=== PATIENT | male | born 1965 | race Caucasian/White ===

== ENCOUNTER 2019-03-02 07:51 | Outpatient (RCR) | payer BC, SELFPAY ==
[2019-03-02] VITALS (8 sets, daily range): BP systolic 111–122; BP diastolic 65–79; PULSE 62–78; RESP 16; TEMP 36.6–37.3; O2SAT 97–100
[2019-03-02] MEDS: ACETAMINOPHEN 325 MG TABLET 650 MG PO (08:25)
[2019-03-02] MEDS: FUROSEMIDE INJ 40 MG/4 ML VIAL 20 MG IV PUSH (11:20)
== END 2019-05-31 23:59 | disposition home or self-care (01) ==
LOC: ANHCPCTRAN 07:51
PROVIDERS: PCP Internal Medicine; Visit Provider Internal Medicine Hematology & Oncology
DX: C15.5 Malignant neoplasm of lower third of esophagus (principal)
CPT/HCPCS: 36415; 36430; 86850; 86900; 86901; 86923; 96374; A9270; J1940; J7050; P9016

== ENCOUNTER 2019-05-18 06:53 | Outpatient (CLI) | payer BC, SELFPAY ==
--- NOTE | ~2019-05-18 | PE_ITS ---
EXAMINATION: PET skull to mid thigh DATE: 05/18/2019 09:51 INDICATION: Cancer of distal third of esophagus. TECHNIQUE: Blood glucose level was 127 mg/dL. 10.638 mCi of 18-fluorodeoxyglucose (18-FDG) was admini stered i.v. Low dose computed tomography (CT) images were acquired from the base of the brain to the proximal thighs for attenuation correction and anatomic localization. Automated exposure control was employed. Dose-length product (DLP) was 482 mGy-cm. Positron emission tomography (PET) images were ac quired in the same distribution. COMPARISON: PET/CT 02/09/2019 FINDINGS: Head/neck: There are no pathologically enlarged lymph nodes. Chest: There is mild emphysema. There is mild atelectasis bilaterally. There are tree-in-bud opacitie s and centrilobular nodules in right upper lobe, consistent with mild pneumonia. No pleural effusion. There are changes of esophagectomy and gastric pull-through procedure. At the diaphragmatic hiatus a butting the stomach, there is a 2.6 x 2.3 cm mass with maximum SUV of 3.5. On 02/09/2019, the mass me asured 4.2 x 3.3 cm with maximum SUV of 12.4. There are no pathologically enlarged lymph nodes. Ther e is a left internal jugular port with tip in right atrium. Abdomen/pelvis/proximal thighs: The liver, gallbladder, spleen, pancreas, adrenal glands, and kidneys are normal. There are no dilated loops of bowel. There are no pathologically enlarged lymph nodes. T here is no free intraperitoneal fluid. IMPRESSION: 1. Mass at the diaphragmatic hiatus abutting the stomach with interval decrease in size and activity, consistent with recurrent esophageal cancer. 2. Mild pneumonia in right lung upper lobe. Reviewed, dictated and finalized at location A. HEALTH SCHEDULER
[2019-05-18 07:36] LABS: Glucose Point of Care 127 (65-105)
== END 2019-05-18 06:54 | disposition home or self-care (01) ==
LOC: ANHIMG 06:56
PROVIDERS: Visit Provider Internal Medicine Hematology & Oncology
DX: C15.5 Malignant neoplasm of lower third of esophagus (principal); J18.9 Pneumonia, unspecified organism
CPT/HCPCS: 78815; A9552

== ENCOUNTER 2019-05-29 08:01 | Outpatient (CLI) | payer BC, SELFPAY ==
--- NOTE | ~2019-05-29 | MR_ITS ---
EXAMINATION: MR abdomen wo/w con DATE: 05/29/2019 10:03 INDICATION: Malignant neoplasm of the lower third of the esophagus TECHNIQUE: Magnetic resonance imaging (MRI) of the abdomen was performed without and with 13 mL Multi viki intravenous contrast. Sequences included coronal T2-weighted SS-FSE, coronal and axial FS 2D-F IESTA, axial STIR FSE, axial T2-weighted SS-FSE, axial T2-weighted FS SS-FSE, axial diffusion-weighte d SE, axial dual-echo T1-weighted FSPGR, and axial and coronal T1-weighted LAVA. Postcontrast axial T 1-weighted LAVA images were obtained in a time course. Postcontrast coronal T1-weighted LAVA images w ere obtained. COMPARISON: PET/CT dated 05/18/[address] of the abdomen and pelvis dated 11/18/2018 FINDINGS: Postoperative change of prior esophagectomy and gastric pull-through procedure. There is enhancing so ft tissue resulting in focal wall thickening of the pull-through at the level of the thoracic hiatus. This measures approximately 3.9 x 4.2 cm in maximal dimensions on the coronal images which appears u nchanged compared with chest CT dated 02/06/2019. The mass surrounds a couple foci of susceptibility artifact likely related to prior surgical clips. 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 Mild atelectasis in the right lower lobe. Heart size is normal. No pericardial or pleural effusion. T he liver, gallbladder, spleen, bilateral adrenal glands and kidneys are normal. Mild fatty atrophy of the pancreas. Aside from the mass at the breast colitis which have resulted from a metastatic paraes ophageal lymph node, no other pathologically enlarged abdominal lymph nodes. Visualized portions of t he bowels and bladder are normal. Bones are unremarkable with normal marrow signal. IMPRESSION: 1. Status post esophagectomy and gastric bypass procedure for reported poor esophageal cancer. 2. Poorly delineated enhancing mass with irregular margins located at the thoracic hiatus likely resu lting from metastatic paraesophageal lymph nodes and invading the wall of the distal aspect of a josee amy pull-through. This does not appear appreciably changed in size when compared and coronal imaging with CT dated 02/06/2019. No other evident metastatic disease. Reviewed, dictated and finalized at location A. M PROFESSIONAL IMPRESSION: 1. Status post esophagectomy and gastric bypass procedure for reported poor eso phageal cancer. 2. Poorly delineated enhancing mass with irregular margins located at the thora cic hiatus likely resulting from metastatic paraesophageal lymph nodes and inva ding the wall of the distal aspect of a gastric pull-through. This does not ketty ear appreciably changed in size when compared and coronal imaging with CT dated 02/06/2019. No other evident metastatic disease.
[2019-05-29 08:38] LABS: Blood Urea Nitrogen 11 mg/dL (8-26); Estimated Glomerular Filt Rate > 60
== END 2019-05-29 08:02 | disposition home or self-care (01) ==
PROVIDERS: PCP Internal Medicine; Visit Provider Radiology Radiation Oncology
DX: C15.5 Malignant neoplasm of lower third of esophagus (principal); C77.1 Secondary and unspecified malignant neoplasm of intrathoracic lymph nodes; Z90.49 Acquired absence of other specified parts of digestive tract; Z98.84 Bariatric surgery status
CPT/HCPCS: 74183; A9577

== ENCOUNTER 2019-08-01 07:11 | Outpatient (CLI) | payer BC, SELFPAY ==
--- NOTE | ~2019-08-01 | PE_ITS ---
EXAMINATION: PET skull to mid thigh DATE: 08/01/2019 09:32 INDICATION: Cancer of the distal third of the esophagus TECHNIQUE: Blood glucose level was 111 mg/dL. 9.877 mCi of 18-fluorodeoxyglucose (18-FDG) was adminis tered i.v. Low dose computed tomography (CT) images were acquired from the base of the brain to the p roximal thighs for attenuation correction and anatomic localization. Positron emission tomography (PE T) images were acquired in the same distribution beginning 73 minutes after injection. Images includi ng fused PET/CT images were reconstructed in axial, coronal, and sagittal planes. Automated exposure control technique was employed. The dose-length product was 532.03mGy-cm. COMPARISON: PET/CT dated 05/18/2019 and 02/09/2019 and abdomen MRI dated 05/29/2019 FINDINGS: Head/neck: There is symmetric increased activity in the oral cavity, palatine tonsils and ocular muscles without CT correlate, likely physiologic. No pathologically enlarged cervical lymphadenopathy or suspicious foci of increased FDG uptake in the visualized head or neck. Chest: Postoperative change of prior esophagectomy and gastric pull-through procedure. There is mild atelect asis in the right upper and bilateral lower lobes along the margins of the pull-through. Mild emphyse ma. No suspicious pulmonary nodules or pleural effusion. Heart size is normal. No pericardial effusio n. Atherosclerotic coronary artery calcifications. Left internal jugular central venous port catheter with distal tip at the high right atrium. No pathologically enlarged or FDG avid thoracic lymphadeno aydee. Abdomen/pelvis/proximal thighs: At the diaphragmatic hiatus abutting the distal stomach there has been no significant interval change in a poorly defined FDG avid mass with maximal SUV of 3.6 which measures approximately 2.6 x 2.1 cm at the level of a surgical clip. Physiologic renal accumulation and excretion of FDG activity in the kidneys, bladder and along portions of ureters. Normal degree and heterogenous pattern of increased u ptake throughout the liver without radiologic correlate or dominant FDG avid lesion. The gallbladder, pancreas, spleen and bilateral adrenal glands are normal. Mild uptake scattered throughout the bowel s without radiologic correlate, also likely physiologic. No other abnormal foci of increased FDG upta ke or pathologically enlarged lymphadenopathy in the abdomen, pelvis or proximal thighs. Musculoskeletal: No suspicious lytic, blastic or FDG avid bone lesions. IMPRESSION: 1. Postoperative change of prior esophagectomy and gastric pull-through procedure for reported distal esophageal cancer. 2. No interval change in a small mildly FDG avid mass abutting the distal stomach at the thoracic hia tus which is decreased in size and FDG activity since an earlier PET study consistent with treated lo dio recurrent disease. No new metastatic disease. Reviewed, dictated and finalized at location A. IMPRESSION: 1. Postoperative change of prior esophagectomy and gastric pull-through procedu re for reported distal esophageal cancer. 2. No interval change in a small mildly FDG avid mass abutting the distal stoma ch at the thoracic hiatus which is decreased in size and FDG activity since an earlier PET study consistent with treated locally recurrent disease. No new met astatic disease.
[2019-08-01 07:53] LABS: Glucose Point of Care 111 (65-105)
== END 2019-08-01 07:12 | disposition home or self-care (01) ==
LOC: ANHIMG 07:13
PROVIDERS: PCP Internal Medicine; Visit Provider Internal Medicine Hematology & Oncology
DX: C15.5 Malignant neoplasm of lower third of esophagus (principal)
CPT/HCPCS: 78815; A9552

== ENCOUNTER 2019-08-23 10:28 | Outpatient (CLI) | payer BC, SELFPAY ==
--- NOTE | ~2019-08-23 | XR_ITS ---
XR abdomen/kub 1V 08/23/2019 10:54 INDICATION: Kidney stone TECHNIQUE: KUB COMPARISON: Comparison to multiple prior studies sequentially, with oldest reviewed study dated 01/09. FINDINGS: Bowel gas pattern is normal. There is no evidence of free air, mass, organomegaly, ascites or obstruction. No abnormal calculi are seen. No suspected urolithiasis. The bones appear intact. IMPRESSION: 1: No acute abdominal abnormality identified. Reviewed, dictated and finalized at location A.
== END 2019-08-23 10:29 | disposition home or self-care (01) ==
LOC: ANHIMG 10:31
PROVIDERS: PCP Internal Medicine; Visit Provider Urology
DX: N20.0 Calculus of kidney (principal)
CPT/HCPCS: 74018

== ENCOUNTER 2019-10-02 06:36 | Outpatient (CLI) | payer BC, SELFPAY ==
--- NOTE | ~2019-10-02 | CT_ITS ---
EXAMINATION: CT chest w con DATE: 10/02/2019 07:21 INDICATION: Cancer of the distal third of the esophagus TECHNIQUE: Transaxial computed tomographic images of the chest were obtained after the administration of 75 cc of Omnipaque 350 intravenous contrast. The dose-length product (DLP) was 243.17 mGy-cm. Ite rative reconstruction was used. COMPARISON: 08/01/2019, 02/06/2019 FINDINGS: There are changes of esophagectomy and gastric pull-through. The lungs are free of acute op acities. No suspicious pulmonary nodules are identified. There is no pleural effusion or pneumothorax . A left internal jugular Port-A-Cath ends with its tip in the proximal right atrium. No pathological ly enlarged thoracic lymph nodes are identified. The heart size is normal. There is continued interva l decrease in size of the previously described mass at the diaphragmatic hiatus abutting the stomach. The mass measures approximately 2.9 x 2.5 cm, previously 3.6 x 2.6 cm. Calcified coronary artery ath erosclerosis is noted. IMPRESSION: 1. Continued interval decrease in size of a mass at the diaphragmatic hiatus, consistent with respons e to therapy of locally recurrent esophageal cancer. Reviewed, dictated and finalized at location A. IMPRESSION: 1. Continued interval decrease in size of a mass at the diaphragmatic hiatus, c onsistent with response to therapy of locally recurrent esophageal cancer.
[2019-10-02 07:12] LABS: Estimated Glomerular Filt Rate > 60
== END 2019-10-02 06:37 | disposition home or self-care (01) ==
LOC: ANHIMG 06:39
PROVIDERS: PCP Internal Medicine; Visit Provider Internal Medicine Hematology & Oncology
DX: C15.5 Malignant neoplasm of lower third of esophagus (principal)
CPT/HCPCS: 36415; 71260; Q9967

== ENCOUNTER 2019-10-28 01:46 | Outpatient (CLI) | payer BC, SELFPAY ==
[2019-10-28 18:09] LABS: SARS-CoV-2 RNA PCR Negative
== END 2019-10-28 01:47 | disposition home or self-care (01) ==
LOC: ANHIMG 01:47
PROVIDERS: Surgery; PCP Internal Medicine; Visit Provider Internal Medicine Hematology & Oncology
DX: Z01.818 Encounter for other preprocedural examination (principal); Z11.59 Encounter for screening for other viral diseases; C15.5 Malignant neoplasm of lower third of esophagus
CPT/HCPCS: 87635; C9803; U0003

== ENCOUNTER 2019-10-31 02:18 | Day surgery (SDC) | payer BC, SELFPAY ==
[2019-10-24 14:55] VITALS: BMI 28.5
[2019-10-31 06:56] VITALS: BP 116/76; PULSE 84; RESP 16; TEMP 36.4; O2SAT 99; BMI 25.6
[2019-10-31 07:12] LABS: Glucose Point of Care 115 (65-105)
[2019-10-31] MEDS: LACTATED RINGERS 1,000 ML 150 ML IV CONT (07:13)
--- NOTE | 2019-10-31 07:55 | WPDANESEPPF ---
Anes - Initial Pre Proc Eval Procedure: Operation Date: 10/31/19 08:15 Proposed Procedures p Screening Colonoscopy - Anderson Sousa DO Date/Time: 10/31/19 07:55 Surgeon: Anderson Sousa DO Pre Op Diagnosis: CA of Third Distal esophagus Patient Data Age: 54 Gender: M Height: 5 ft 8 in Weight: 76.5 kg Last Vital Signs Temp 36.4 C L 10/31/19 06:56 Pulse 84 10/31/19 06:56 Resp 16 10/31/19 06:56 BP 116/76 10/31/19 06:56 Pulse Ox 99 10/31/19 06:56 Allergies Allergy/AdvReac Type Severity Reaction Status Date / Time tamsulosin Allergy Intermediate HIVES Verified 10/31/19 06:55 Home Medications Medication Instructions Recorded Confirmed Type Lantus U-100 Insulin 8 unit SUBCUT DAILY 02/15/19 10/24/19 History escitalopram oxalate 40 mg PO DAILY 02/15/19 10/24/19 History lorazepam 0.5 mg PO BID PRN 02/15/19 10/24/19 History omeprazole 20 mg PO BID 02/15/19 10/24/19 History pravastatin 10 mg PO DAILY 02/15/19 10/24/19 History duloxetine 20 mg PO DAILY 10/24/19 10/24/19 History Laboratory Tests 10/31/19 07:07 POC Capillary Glucose 115 mg/dl H mg/dl (65-105) Patient hx anesthesia problems: none Family hx anesthesia problems: none PMFSH Past Medical History Medical History Anxiety Chronic GERD HTN (hypertension) Hyperlipidemia Insulin dependent diabetes mellitus Local recurrence of malignant neoplasm of esophagus SUDHIR (obstructive sleep apnea) Surgical History Surgical History History of esophagectomy Family History Family History Grandparent Diabetes mellitus Family history of cardiovascular disease Sibling Hypertension Mother Family history of elevated blood lipids Social History Social History Smoking status: Never smoker Anes - Eval Final PreProcedure Day of Procedure 10/31/19 07:55 Patient weight: overweight Heart: regular rate and rhythm Lungs: clear to auscultation Airway: Mallampati scale class II Neurological: alert and oriented Last oral intake: >/= 8 hours ASA classification: III Emergent: no Anesthetic plan: proceed Anesthesia type and monitoring: general GIVS and standard monitoring Informed Consent: The patient's anesthetic plan and its attendant risks and benefits were discussed with the patient/family/POA. Questions were solicited and answers provided to the satisfaction of the patient/family/POA.
--- NOTE | 2019-10-31 08:13 | PM.IMHP ---
H&P: HPI History of Present Illness Chief complaint: CA of Third Distal esophagus Narrative: Lazarus Bernard is a 54 year old male who presents for colonoscopy. He has never had one before. Had fecal occult blood test positive but doesn't notice blood in stool. Has hx of esophageal cancer and chemo/radiation. No fam hx colon cancer. Review of Systems Review of Systems: All systems reviewed & are unremarkable except as noted in HPI and below Constitutional: Constitutional: Denies chills, Denies fever(s), Denies headache(s) and Denies weight loss Eyes: Eyes: Denies change in vision ENT: Denies dizziness, Denies headache(s), Denies neck mass and Denies throat swelling Cardiovascular: Cardiovascular: Denies chest pain, Denies lightheadedness and Denies dyspnea Respiratory: Respiratory: Denies cough, Denies dyspnea and Denies wheezing Gastrointestinal: Gastrointestinal: Denies abdominal pain, Denies change in bowel habits, Denies nausea and Denies vomiting Genitourinary: Genitourinary: Denies hematuria and Denies dysuria Musculoskeletal: Musculoskeletal: Reports as per HPI Integumentary/Breasts: Skin/Breast: Reports as per HPI Neurologic: Denies dizziness and Denies headache(s) Allergic/Immunologic: Allergic/Immunologic: Denies throat swelling and Denies wheezing PMF Past Medical History Medical History Anxiety Chronic GERD HTN (hypertension) Hyperlipidemia Insulin dependent diabetes mellitus Local recurrence of malignant neoplasm of esophagus SUDHIR (obstructive sleep apnea) Surgical History Surgical History History of esophagectomy Family History Family History Grandparent Diabetes mellitus Family history of cardiovascular disease Sibling Hypertension Mother Family history of elevated blood lipids Social History Social History Smoking status: Never smoker Meds Home Medications and Allergies Home Medications Medication Instructions Recorded Confirmed Type Lantus U-100 Insulin 8 unit SUBCUT DAILY 02/15/19 10/24/19 History escitalopram oxalate 40 mg PO DAILY 02/15/19 10/24/19 History lorazepam 0.5 mg PO BID PRN 02/15/19 10/24/19 History omeprazole 20 mg PO BID 02/15/19 10/24/19 History pravastatin 10 mg PO DAILY 02/15/19 10/24/19 History duloxetine 20 mg PO DAILY 10/24/19 10/24/19 History Allergies Allergy/AdvReac Type Severity Reaction Status Date / Time tamsulosin Allergy Intermediate HIVES Verified 10/31/19 06:55 Vital Signs Vital Signs - 24 hr 10/31/19 06:56 Temperature 36.4 C L Pulse Rate 84 Respiratory Rate 16 Blood Pressure 116/76 Pulse Oximetry 99 Exam Const: General: no acute distress and alert Orientation/consciousness: patient oriented x3 HENMT: Head: normocephalic and atraumatic Ears: hearing grossly normal bilaterally General nose exam: Normal nares present Mouth: Yes Normal oral and palatal mucosa present Eyes: Periorbital: periorbital findings normal Sclera: sclerae normal EOM: EOMs intact bilaterally Neck: Neck: normal visual inspection, no lymphadenopathy and trachea midline Chest: Chest palpation & inspection: normal inspection of the chest Resp: Effort & Inspection: normal respiratory effort Auscultation: clear to auscultation bilaterally Cardio: Jugular venous distension: no JVD Rate: regular rate Rhythm: regular rhythm Heart sounds: S1 normal heart sound present and S2 normal heart sound present Peripheral pulses: Peripheral pulses 2+ throughout GI: Inspection: normal to inspection GI Palp: Yes Soft to palpation, No Tenderness to palpation present (GI), No Guarding due to palpation present (GI) and No Rebound tenderness present Percussion: Yes normal to percussion Auscultation: normal bowel sounds : Genera
[2019-10-31 08:43] VITALS: BP 119/78; PULSE 73; RESP 16; O2SAT 96
[2019-10-31 08:53] VITALS: BP 123/78; PULSE 82; RESP 16; O2SAT 99
[2019-10-31 09:03] VITALS: BP 121/81; PULSE 79; RESP 16; O2SAT 99
[2019-10-31 10:22] LABS: Glucose Point of Care 103 (65-105)
== END 2019-10-31 09:18 | disposition home or self-care (01) ==
PROVIDERS: PCP Internal Medicine; Visit Provider Surgery
PROC: 0DJD8ZZ Inspection of Lower Intestinal Tract, Via Natural or Artificial Opening Endoscopic (ICD-10-PCS; CPT 45378; principal; 2019-10-31 08:15)
DX: Z12.11 Encounter for screening for malignant neoplasm of colon (principal); R19.5 Other fecal abnormalities; K62.1 Rectal polyp; I10 Essential (primary) hypertension; E78.5 Hyperlipidemia, unspecified; E11.9 Type 2 diabetes mellitus without complications; G47.33 Obstructive sleep apnea (adult) (pediatric); K21.9 Gastro-esophageal reflux disease without esophagitis; F41.9 Anxiety disorder, unspecified; Z79.4 Long term (current) use of insulin; Z85.01 Personal history of malignant neoplasm of esophagus; Z92.21 Personal history of antineoplastic chemotherapy; Z92.3 Personal history of irradiation
CPT/HCPCS: 45380; 88305; J2704; J7120

== ENCOUNTER 2019-12-04 15:58 | Outpatient (CLI) | payer BC, SELFPAY ==
--- NOTE | ~2019-12-04 | XR_ITS ---
EXAMINATION: XR shoulder LT min 2V DATE: 12/04/2019 16:22 INDICATION: Generalized left shoulder pain TECHNIQUE: AP internally and externally rotated, AP oblique externally rotated and transscapular Y vi ews of the left shoulder were obtained. COMPARISON: None FINDINGS: Normal alignment. No fracture. Glenohumeral joint is normal. Minimal acromioclavicular osteoarthriti s. Left internal jugular central venous port catheter which extends into the superior vena cava with distal tip not visualized. Soft tissues are unremarkable. IMPRESSION: Minimal acromioclavicular osteoarthritis. Reviewed, dictated and finalized at location A.
[2019-12-04 16:10] LABS: Basophils Absolute Auto 0.06 K/mm3 (0.00-0.10); Basophils Percent Auto 1.3 % (0.0-1.0); Eosinophils Absolute Auto 0.13 K/mm3 (0.02-0.50); Eosinophils Percent Auto 2.7 % (1.0-6.0); Hemoglobin 11.8 g/dL (14.0-18.0); Immature Granulocyte Absolute 0.02 K/mm3 (0.00-0.00); Immature Granulocyte Percent A 0.4 % (0.0-0.0); Lymphocytes Absolute Auto 0.59 K/mm3 (1.10-4.50); Lymphocytes Percent Auto 12.4 % (18.0-42.0); Mean Corpuscular HGB Conc 31.9 g/dL (32.0-36.0); Mean Corpuscular Hemoglobin 28.9 pg (27.0-31.0); Mean Corpuscular Volume 90.5 fL (78.0-102.0); Mean Platelet Volume 8.1 fl (8.7-11.0); Monocytes Absolute Auto 0.68 K/mm3 (0.10-0.90); Monocytes Percent Auto 14.3 % (2.0-11.0); Neutrophils Absolute Auto 3.3 K/mm3 (1.7-7.2); Neutrophils Percent Auto 68.9 % (50.0-70.0); Platelet Count Result 191 K/mm3 (150-420); Red Blood Count 4.09 M/mm3 (4.70-6.10); Red Cell Distribution Width 18.1 % (11.6-14.4); White Blood Count 4.8 K/mm3 (4.8-10.8)
[2019-12-04 16:13] LABS: Add Urine Microscopic? YES; Appearance Urine Clear (Clear); Bilirubin Urine Negative (Negative); Blood Urine Negative (Negative); Color Urine Yellow (Yellow); Glucose Urine UA 2+ (Negative); Ketones Urine Trace (Negative); Leukocyte Esterase Ur Negative (Negative); Nitrate Urine Negative (Negative); Protein Urine Negative (Negative); Specific Grav Ur >= 1.030 (1.010-1.020); Urobilinogen Urine 0.2 mg/dL (0.2-1.0); pH Urine 5.5 (5.0-8.0)
[2019-12-04 16:19] LABS: Hemoglobin A1C 7.3 % (<5.7)
[2019-12-04 16:31] LABS: Bacteria Urine Trace /hpf; Calcium Oxalate Crystals Urine Present /hpf; RBC Urine 0-2 /hpf (0-2); Squamous Epithelial Cell Urine Rare /hpf (Few); WBC Urine 0-3 /hpf (0-3)
[2019-12-04 17:16] LABS: Alanine Aminotransferase 28 U/L (16-63); Albumin Level 3.7 g/dL (3.4-5.0); Alkaline Phosphatase 111 U/L (46-116); Anion Gap 9 mmol/L (8-16); Aspartate Amino Transferase 20 U/L (15-37); Bilirubin,Total 0.1 mg/dL (0.00-1.00); Blood Urea Nitrogen 17 mg/dL (7-18); Calcium 8.6 mg/dL (8.5-10.1); Carbon Dioxide 28 mmol/L (21-32); Chloride 104 mmol/L (98-108); Cholesterol 139 mg/dL (0-200); Estimated Glomerular Filt Rate > 60; Glucose 201 mg/dL (70-99); HDL Direct 37 mg/dL (40-60); LDL Cholesterol Calculated 78 mg/dL (<130); Osmolality Calculated 299 mOsm/kg (285-295); Potassium 4.3 mmol/L (3.5-5.1); Sodium 141 mmol/L (136-145); Triglycerides 121 mg/dL (0-150)
== END 2019-12-04 15:59 | disposition home or self-care (01) ==
LOC: CHSLAB 16:00
PROVIDERS: PCP Internal Medicine; Visit Provider Internal Medicine
DX: E78.5 Hyperlipidemia, unspecified (principal); E11.9 Type 2 diabetes mellitus without complications; M25.512 Pain in left shoulder; Z12.5 Encounter for screening for malignant neoplasm of prostate; Z00.00 Encounter for general adult medical examination without abnormal findings
CPT/HCPCS: 36415; 73030; 80053; 80061; 81001; 83036; 84153; 84443; 85025; G0103

== ENCOUNTER 2019-12-27 06:52 | Outpatient (CLI) | payer BC, SELFPAY ==
--- NOTE | ~2019-12-27 | CT_ITS ---
EXAMINATION: CT chest w con DATE: 12/27/2019 07:11 INDICATION: Cancer of the distal third of the esophagus with local recurrence of the diaphragmatic hi atus TECHNIQUE: Transaxial computed tomographic images of the chest were obtained after the administration of 75 cc of Omnipaque 350 intravenous contrast. The dose-length product (DLP) was 266.75 mGy-cm. Ite rative reconstruction was used. COMPARISON: 10/02/2019 FINDINGS: Again noted are changes of esophagectomy and gastric pull-through. No suspicious pulmonary nodules are identified. There is no pleural effusion or pneumothorax. A left internal jugular Port-A- Cath ends with its tip in the proximal right atrium. No pathologically enlarged thoracic lymph nodes are identified. The heart size is normal. An approximately 2.8 x 2.2 cm soft tissue density near the diaphragmatic hiatus is not significantly changed in size. IMPRESSION: 1. Stable mass at the diaphragmatic hiatus, consistent with locally recurrent esophageal cancer. No s ignificant interval change. Reviewed, dictated and finalized at location B. IMPRESSION: 1. Stable mass at the diaphragmatic hiatus, consistent with locally recurrent e sophageal cancer. No significant interval change.
== END 2019-12-27 06:53 | disposition home or self-care (01) ==
LOC: ANHIMG 06:54
PROVIDERS: PCP Internal Medicine; Visit Provider Internal Medicine Hematology & Oncology
DX: C15.5 Malignant neoplasm of lower third of esophagus (principal)
CPT/HCPCS: 71260; Q9967

== ENCOUNTER 2020-01-27 10:03 | Outpatient (CLI) | payer BC, SELFPAY ==
--- NOTE | ~2020-01-27 | MR_ITS ---
EXAMINATION: MR shoulder LT wo con DATE: 01/27/2020 11:31 INDICATION: Generalized left shoulder pain radiating down the arm TECHNIQUE: Magnetic resonance imaging (MRI) of the left shoulder was performed without intravenous co ntrast. Sequences included axial PD-weighted FS FSE, coronal oblique PD-weighted FS FSE, coronal obli que T2-weighted FS FSE, sagittal PD-weighted FS FSE, and sagittal T1-weighted SE. COMPARISON: Left shoulder radiographs dated 12/04/2019 FINDINGS: Coracoacromial arch: The acromion undersurface is curved in morphology (type II). The coracoacromial ligament is normal. M ild acromioclavicular osteoarthritis with tiny inferiorly directed osteophytes. Rotator cuff: Mild supraspinatus tendinopathy without discrete tear. The infraspinatus, teres minor and subscapular is tendons are normal. Normal rotator cuff muscle bulk and signal. Biceps tendon, glenoid labrum and glenohumeral cartilage: Long head of the biceps tendon is normal. There is a tear at the chondral labral junction at the 10:0 0-o'clock position of the posterior glenoid labrum. The glenohumeral cartilage appears otherwise norm al. Tiny marginal osteophytes along the inferior glenoid. Fluid: Physiologic amount of fluid in the glenohumeral joint and biceps tendon sheath. No loose osteochondra l bodies. No abnormal fluid signal in the subacromial/subdeltoid bursa to suggest bursitis. Bones: Normal marrow signal with no edema, fracture or abnormal marrow replacing process. IMPRESSION: 1. Mild supraspinatus tendinopathy without discrete tear. 2. Small posterior labral tear at the chondral labral junction. Reviewed, dictated and finalized at location B.
== END 2020-01-27 10:04 | disposition home or self-care (01) ==
PROVIDERS: PCP Internal Medicine; Visit Provider Internal Medicine
DX: M25.512 Pain in left shoulder (principal); Z85.01 Personal history of malignant neoplasm of esophagus; S43.492A Other sprain of left shoulder joint, initial encounter
CPT/HCPCS: 73221

== ENCOUNTER 2020-04-03 06:35 | Outpatient (CLI) | payer BC, SELFPAY ==
--- NOTE | ~2020-04-03 | CT_ITS ---
EXAMINATION: CT chest w con DATE: 04/03/2020 07:03 INDICATION: Restaging, cancer of distal third of esophagus TECHNIQUE: Computed tomography (CT) of the chest was performed with 75 cc Omnipaque 350 intravenous c ontrast. Automated exposure control and iterative reconstruction technique were employed. Exam dose: 248.46 mGy-cm total exam DLP. COMPARISON: 12/27/2019 CT chest FINDINGS: Postoperative change from esophagectomy and gastric pull-through surgery is again noted. An approximately 1.5 x 2 cm left periaortic lymph node, likely due to metastasis. Smaller shotty periao rtic and aortocaval lymph nodes are noted.. There is no evidence of small or large bowel obstruction or intraperitoneal free air. . Left Port-A-Cath catheter is noted. Normal size and no evidence of abnormal mass lesion of the thyroid gland. No hilar or mediastinal mass lesion or lymphadenopathy is evident. No thoracic aortic aneurysm or dissection. Normal heart size. No pericardial or pleural effusion. Normal morphology of the adrenal glands., The liver, spleen, pancreas, gallbladder and bile and pancr eatic ducts appear unremarkable. Normal caliber of the included portion of the abdominal aorta. No suspicious osteolytic or osteoblastic lesions are noted. IMPRESSION: Left periaortic lymphadenopathy, suggesting metastasis Status post esophagectomy and gastric pull-through for history of distal esophageal carcinoma Reviewed, dictated and finalized at Location A. Reviewed, dictated and finalized at location B. DANCER IMPRESSION: Left periaortic lymphadenopathy, suggesting metastasis Status post esophagectomy and gastric pull-through for history of distal esopha geal carcinoma
== END 2020-04-03 06:36 | disposition home or self-care (01) ==
LOC: ANHIMG 06:36
PROVIDERS: PCP Internal Medicine; Visit Provider Internal Medicine Hematology & Oncology
DX: C15.5 Malignant neoplasm of lower third of esophagus (principal); R59.0 Localized enlarged lymph nodes; Z98.890 Other specified postprocedural states
CPT/HCPCS: 71260; Q9967

== ENCOUNTER 2020-04-11 07:14 | Outpatient (CLI) | payer BC, SELFPAY ==
--- NOTE | ~2020-04-11 | PE_ITS ---
EXAMINATION: PET skull to mid thigh DATE: 04/11/2020 09:08 INDICATION: Cancer of the distal third of the esophagus. TECHNIQUE: 10.7 mCi of 18-fluorodeoxyglucose (18-FDG) was administered i.v. Low dose computed tomogra phy (CT) images were acquired from the base of the brain to the proximal thighs for attenuation corre ction and anatomic localization. Positron emission tomography (PET) images were acquired after inject ion. Images including fused PET/CT images were reconstructed in axial, coronal, and sagittal planes. Automatic exposure control is employed as a dose reduction technique. COMPARISON: PET/CT dated 07/31/2013, 05/18/2019 and 02/09/2019 FINDINGS: Head/neck: There is mucosal thickening in the right maxillary sinus. No hypermetabolic activity in the neck to s uggest metastatic disease. No significant cervical lymphadenopathy. There is a port catheter extendin g via the internal jugular vein into the SVC. Chest: There are postoperative changes of prior esophagectomy with gastric pull-through are. No thoracic lym phadenopathy. Heart size normal. No significant pleural or pericardial effusion. Lung parenchyma is u nremarkable. There is a large amount of debris in the gastric pull-through. No focal airspace consoli dation. No suspicious pulmonary nodules or masses. There is atherosclerosis. Abdomen/pelvis/proximal thighs: There has been progression of poorly defined FDG avid mass at the diaphragmatic hiatus abutting the s tomach with maximum SUV of 7.65 compared with 3.6 cm prior examination. No soft tissue mass is increa sed in size compared measuring 6.1 x 5.2 cm compared with 5 x 4.5 cm on prior examination. The liver, spleen, adrenal glands and kidneys are unremarkable. Old uptake in the bowel, likely physi ologic. Nonobstructive bowel gas pattern. Interval development of 2.2 cm lymph node in the left peria ortic location, image 399, with mild FDG uptake. Maximum SUV is 2.8, consistent with metastatic disea se. Bones/Soft tissues: No hypermetabolic activity. IMPRESSION: 1. Progression of size and FDG uptake of poorly defined mass of the diaphragmatic hiatus abutting the stomach with maximum SUV is 7.65 and size of 6.1 x 5.2 cm greatest axial dimension. 2: New left periaortic lymph node measuring 2.2 cm with maximum SUV of 2.8, consistent with metastat ic disease. Reviewed, dictated and finalized at location A. RIALS ASSISTANT IMPRESSION: 1. Progression of size and FDG uptake of poorly defined mass of the diaphragmat ic hiatus abutting the stomach with maximum SUV is 7.65 and size of 6.1 x 5.2 c m greatest axial dimension. 2: New left periaortic lymph node measuring 2.2 cm with maximum SUV of 2.8, co nsistent with metastatic disease.
[2020-04-11 07:45] LABS: Glucose Point of Care 135 (65-105)
== END 2020-04-11 07:15 | disposition home or self-care (01) ==
PROVIDERS: PCP Internal Medicine; Visit Provider Internal Medicine Hematology & Oncology
DX: C15.5 Malignant neoplasm of lower third of esophagus (principal)
CPT/HCPCS: 78815; A9552

== ENCOUNTER 2020-04-18 20:55 | Emergency (ER) | payer BC, OTHER, SELFPAY ==
--- NOTE | ~2020-04-18 | CT_ITS ---
EXAMINATION: CTA chest PE abdomen pel DATE: 04/18/2020 23:04 INDICATION: Chest pain, history of esophageal cancer TECHNIQUE: Computed tomography angiography (CTA) of the chest was performed with 100 mL Omnipaque-350 intravenous contrast timed to evaluate the pulmonary arteries. Subsequent postcontrast images of the abdomen and pelvis are obtained. Coronal maximum intensity projection 3D-reconstructions were create d by the technologist. The dose-length product (DLP) was 837.57 mGy-cm. Automated exposure control an d iterative reconstruction technique were employed. COMPARISON: PET/CT, 04/11/2020 FINDINGS: CTA CHEST: The pulmonary arteries are well-opacified. No pulmonary embolism is identified. There are changes of esophagectomy and gastric pull-through. There is a small right pleural effusion. Mild atel ectasis around the stomach. There is no pneumothorax. A left internal jugular Port-A-Cath ends with i ts tip in the distal superior vena cava. A large amount of ingested material is present in the intrat horacic portion of the stomach. ABDOMEN/PELVIS CT: Again seen is an ill-defined soft tissue mass at the diaphragmatic hiatus, consist ent with locally recurrent esophageal cancer. The liver, spleen, pancreas, gallbladder, and adrenal g lands are normal. The kidneys are unremarkable. Pathologically enlarged retroperitoneal lymph nodes m easure up to 15 mm in short axis. There is no free intraperitoneal gas or evidence of bowel obstructi on. The appendix is normal. There is a moderate volume of colonic stool. IMPRESSION: 1. No pulmonary embolism. 2. Ill-defined mass at the diaphragmatic hiatus consistent with locally recurrent esophageal cancer. 3. Retroperitoneal lymphadenopathy, consistent with metastatic disease. Reviewed, dictated and finalized at location A. [employer] IMPRESSION: 1. No pulmonary embolism. 2. Ill-defined mass at the diaphragmatic hiatus consistent with locally recurre nt esophageal cancer. 3. Retroperitoneal lymphadenopathy, consistent with metastatic disease.
[2020-04-18 21:05] VITALS: BP 117/76; PULSE 121; RESP 16; TEMP 36.7; O2SAT 99
--- NOTE | 2020-04-18 21:10 | ECG_ITS ---
Measurements Intervals [place] Rate: 108 P: 36 DC: 140 QRS: -2 QRSD: 89 T: 22 QT: 317 QTc: 425 Interpretive Statements SINUS TACHYCARDIA MINIMAL Q WAVES- INF/LAT LEADS BASELINE WANDER- I, II, III, AVR, AVF, V1-V4 ABNORMAL ECG Electronically Signed On 04-19-2020 8:17:18 WHIPPER BEATER by Julio De La Torre D.O.
--- NOTE | 2020-04-18 21:20 | ED.CHESTPAIN ---
HPI - Chest Pain General Chief Complaint: Back Pain/Injury Stated Complaint: back ache,threw up Time Seen by Provider: 04/18/20 21:15 Source: patient and family Mode of arrival: wheelchair Limitations: no limitations History of Present Illness HPI narrative: 54-year-old man comes in today complaining of vomiting and chest pain that started earlier today. Patient states that her last day or 2 he has had morning and evening chest pain. He states that he had cold sweats today. He denies abdominal pain, hematemesis, black or bloody stools, fever, however he has had a cough. He denies any sick exposures, calf pain, and calf swelling swelling. 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 Recent imaging showed that the tumor associated with his aorta is back. MD complaint: chest pain Pertinent past history: other (esophagectomy) Onset (ago): day(s) (1) Timing of current episode: episodic and still present Prior episodes: Yes Onset: during rest Pain location: substernal Pain radiation: back Pain scale (0-10): 2 Quality: dull Relieving factors: nothing Exacerbating factors: nothing Associated symptoms: nausea, vomiting and diaphoresis Treatment prior to arrival: none Risk Factors Coronary artery disease risk factors: diabetes and hyperlipidemia Related Data Home Medications Medication Instructions Recorded Confirmed Lantus U-100 Insulin 10 unit SUBCUT DAILY 02/15/19 04/18/20 escitalopram oxalate 40 mg PO DAILY 02/15/19 04/18/20 lorazepam 0.5 mg PO BID PRN 02/15/19 04/18/20 omeprazole 20 mg PO BID 02/15/19 04/18/20 pravastatin 10 mg PO DAILY 02/15/19 04/18/20 duloxetine 20 mg PO DAILY 10/24/19 04/18/20 Allergies Allergy/AdvReac Type Severity Reaction Status Date / Time tamsulosin Allergy Intermediate HIVES Verified 02/12/20 10:07 Review of Systems Constitutional: Constitutional: Denies body ache(s) and Denies chills Comments: denies fever Eyes: Eyes: Denies change in vision and Denies loss of vision ENT: Denies nasal congestion and Denies sore throat Cardiovascular: Cardiovascular: Reports chest pain at rest, Denies pedal edema and Denies leg edema Respiratory: Respiratory: Reports cough, Denies hemoptysis and Reports dyspnea Gastrointestinal: Gastrointestinal: Reports abdominal pain, Denies melena, Denies hematochezia, Denies diarrhea, Reports nausea, Reports vomiting and Denies hematemesis Genitourinary: Genitourinary: Denies hematuria and Denies dysuria Musculoskeletal: Musculoskeletal: Reports back pain Integumentary/Breasts: Skin/Breast: Denies lesions, Denies rash and Denies jaundice Neurologic: Denies vertigo, Denies dizziness, Denies syncope, Denies headache(s) and Denies focal weakness Hematologic/Lymphatic: Hematologic/Lymphatic: Denies easy bleeding and Denies easy bruising Allergic/Immunologic: Allergic/Immunologic: Denies urticaria, Denies lip swelling and Denies throat swelling PMFSH Past Medical History Medical History (Updated 04/19/20 @ 00:23 by Servando Calzada MD) Anemia Anxiety Arthritis Chronic GERD Depression Diabetes High cholesterol HTN (hypertension) Hyperlipidemia Impingement syndrome, shoulder, left Insulin dependent diabetes mellitus Local recurrence of malignant neoplasm of esophagus SUDHIR (obstructive sleep apnea) Port-A-Cath in place Seasonal allergies Tendinitis of left rotator cuff Vision abnormalities Surgical History Surgical History History of arthroscopy of left knee History of esophagectomy Family History Family History (Updated 02/12/20 @ 15:24 by Cori Gtz, RT(R)) Grandparent Diabetes mellitus Family history of cardiovascular disease Sibling Hypertension Mother Family history of elevated blood lipids Other Arthritis Malignant neoplasm Social History Social History (Reviewed
[2020-04-18] MEDS: SODIUM CHLORIDE 0.9% IV 1,000 ML 999 ML IV CONT (21:35)
[2020-04-18] MEDS: ONDANSETRON INJ 4 MG/2 ML VIAL IV PUSH ×2 (21:36→23:48)
[2020-04-18] MEDS: PANTOPRAZOLE SODIUM IV 40 MG VIAL IV PUSH (21:36)
[2020-04-18 21:43] VITALS: BP 113/78; PULSE 98; O2SAT 99
[2020-04-18 22:01] LABS: Basophils Absolute Auto 0.07 K/mm3 (0.00-0.10); Basophils Percent Auto 0.5 % (0.0-1.0); Eosinophils Percent Auto 1.4 % (1.0-6.0); Hematocrit 29.1 % (40.0-54.0); Hemoglobin 9.5 g/dL (14.0-18.0); Immature Granulocyte Absolute 0.09 K/mm3 (0.00-0.00); Immature Granulocyte Percent A 0.6 % (0.0-0.0); Lymphocytes Percent Auto 5.7 % (18.0-42.0); Mean Corpuscular HGB Conc 32.6 g/dL (32.0-36.0); Mean Corpuscular Hemoglobin 30.2 pg (27.0-31.0); Mean Corpuscular Volume 92.4 fL (78.0-102.0); Mean Platelet Volume 8.2 fl (8.7-11.0); Monocytes Absolute Auto 1.38 K/mm3 (0.10-0.90); Monocytes Percent Auto 9.9 % (2.0-11.0); Neutrophils Absolute Auto 11.4 K/mm3 (1.7-7.2); Neutrophils Percent Auto 81.9 % (50.0-70.0); Platelet Count Result 262 K/mm3 (150-420); Red Blood Count 3.15 M/mm3 (4.70-6.10); White Blood Count 13.9 K/mm3 (4.8-10.8)
[2020-04-18 22:15] LABS: Partial Thromboplastin Time 26.5 SEC (23.90-30.70); Prothrombin Time 11.4 Seconds (9.50-12.10)
[2020-04-18 22:17] LABS: D Dimer 1.24 mg/L (0.19-0.50)
[2020-04-18 22:19] LABS: Lactic Acid Reflex 1.5 mmol/L (0.4-2.0)
[2020-04-18 22:23] LABS: Add Urine Microscopic? YES; Alanine Aminotransferase 17 U/L (16-63); Alkaline Phosphatase 83 U/L (46-116); Anion Gap 9 mmol/L (8-16); Appearance Urine Sl Cloudy (Clear); Aspartate Amino Transferase 12 U/L (15-37); Bilirubin Urine Negative (Negative); Bilirubin,Total 0.2 mg/dL (0.00-1.00); Blood Urea Nitrogen 15 mg/dL (7-18); Blood Urine Negative (Negative); Calcium 8.5 mg/dL (8.5-10.1); Carbon Dioxide 24 mmol/L (21-32); Chloride 103 mmol/L (98-108); Color Urine Yellow (Yellow); Estimated Glomerular Filt Rate > 60; Glucose 217 mg/dL (70-99); Glucose Urine UA Negative (Negative); Ketones Urine Negative (Negative); Leukocyte Esterase Ur Negative LEU/UL (Negative); Nitrate Urine Negative (Negative); Osmolality Calculated 289 mOsm/kg (285-295); Potassium 3.6 mmol/L (3.5-5.1); Protein Urine Negative (Negative); Sodium 136 mmol/L (136-145); Specific Grav Ur >= 1.030 (1.010-1.020); Total Protein 6.5 g/dL (6.4-8.2); Troponin I 5.3 ng/L (0.00-60.4); Urobilinogen Urine 0.2 mg/dL (0.2-1.0)
[2020-04-18 22:26] LABS: Squamous Epithelial Cell Urine Rare /hpf (Few); WBC Urine None seen /hpf (0-3)
[2020-04-18 22:27] LABS: Bacteria Urine 1+ /hpf; Mucus Urine Few /lpf
[2020-04-18 22:28] LABS: CRP 6.4 mg/dL (0.0-0.9); Lipase 29 U/L (73-393)
[2020-04-18] MEDS: MORPHINE SULFATE (*CRX) 2 MG/ML INJ IV PUSH ×2 (22:45→23:48)
[2020-04-18 22:48] LABS: Occult Blood Negative (Negative)
[2020-04-18 22:57] VITALS: BP 122/89
[2020-04-18] MEDS: SODIUM CHLORIDE 0.9% IV 1,000 ML 150 ML IV CONT (23:49)
--- NOTE | 2020-04-18 23:52 | PC.NURSE ---
2330 pt had 200ml emesis, reddish/brown in color, liquid. pt states after emesis feeling better but continues with back pain.
[2020-04-19 00:36] VITALS: BP 102/67; PULSE 96; RESP 20; TEMP 36.9; O2SAT 95
== END 2020-04-19 00:43 | disposition home or self-care (01) ==
PROVIDERS: Emergency Provider Emergency Medicine; PCP Internal Medicine
DX: C15.9 Malignant neoplasm of esophagus, unspecified (principal); R07.9 Chest pain, unspecified; D64.9 Anemia, unspecified
CPT/HCPCS: 36415; 71275; 74177; 80053; 81001; 83605; 83690; 84484; 85025; 85380; 85610; 85730; 86140; 87040; 93005; 96361; 96374; 96375; 96376; 99284; 99285; C9113; J2270; J2405; J7030; Q9965; Q9967

== ENCOUNTER 2020-04-20 09:56 | Emergency (ER) | payer BC, SELFPAY ==
[2020-04-20] VITALS (17 sets, daily range): BP systolic 88–125; BP diastolic 48–85; PULSE 93–116; RESP 17–22; TEMP 36.6–37.3; O2SAT 96–100
--- NOTE | ~2020-04-20 | XR_ITS ---
EXAMINATION: XR chest 2V DATE: 04/20/2020 10:37 INDICATION: Malignancy along the celiac artery presenting with weakness and hematemesis. TECHNIQUE: frontal view of the chest was obtained. COMPARISON: Chest radiograph dated 02/22/[address] dated FINDINGS: Unchanged masslike mediastinal opacity superimposed over the right hilum which on CT appears to corre spond to a gastric pull-through procedure. Mild opacities at the lateral aspect of the right mid and lower lung zones with appearance suggesting either atelectasis/scarring or small amount of fluid trac dmitry along the fissures. Left lung is clear. No pulmonary edema, pneumothorax or left-sided pleural e ffusion. Heart size is normal. Left internal jugular central venous port catheter with distal tip shiva r the superior cavoatrial junction. Mild thoracic kyphosis and mild spondylosis. IMPRESSION: 1. Mild opacities at the lateral right mid and lower lung zones most likely atelectasis/scarring or p otentially small amount of fluid tracking along the fissures. Pneumonia considered less likely. 2. Masslike opacity along the right side of the central mediastinum which on CT appears to correspond to change of prior esophagectomy and gastric pull-through procedure. Reviewed, dictated and finalized at location A. [employer] [facility] IMPRESSION: 1. Mild opacities at the lateral right mid and lower lung zones most likely ate lectasis/scarring or potentially small amount of fluid tracking along the fissu res. Pneumonia considered less likely. 2. Masslike opacity along the right side of the central mediastinum which on CT appears to correspond to change of prior esophagectomy and gastric pull-throug h procedure.
--- NOTE | 2020-04-20 10:12 | ED.NAVMDI ---
HPI - Nausea/Vomiting/Diarrhea General Chief complaint: Weakness Stated complaint: MULT C/O Time Seen by Provider: 04/20/20 10:11 History of Present Illness HPI Narrative: 54 yo male w/ h/o esophageal cancer s/p esophagectomy presents to the ED for hematemesis. He first had an episode on night. It was bright red. Associated with chest pain. He was seen at [facility]. H/H below baseline but stable at that time. He had another episode last night. Now feeling weak and dizzy as well. also reports poor PO intake. Esophagectomy done in 2017 at [facility]. Recently found recurrent mass. Related Data Home Medications Medication Instructions Recorded Confirmed Lantus U-100 Insulin 10 unit SUBCUT DAILY 02/15/19 04/18/20 escitalopram oxalate 40 mg PO DAILY 02/15/19 04/18/20 lorazepam 0.5 mg PO BID PRN 02/15/19 04/18/20 omeprazole 20 mg PO BID 02/15/19 04/18/20 pravastatin 10 mg PO DAILY 02/15/19 04/18/20 duloxetine 20 mg PO DAILY 10/24/19 04/18/20 Allergies Allergy/AdvReac Type Severity Reaction Status Date / Time tamsulosin Allergy Intermediate HIVES Verified 02/12/20 10:07 Review of Systems Review of Systems: All systems reviewed & are unremarkable except as noted in HPI and below Constitutional: Constitutional: Reports fatigue, Denies fever(s) and Reports weakness Cardiovascular: Cardiovascular: Reports chest pain Respiratory: Respiratory: Denies dyspnea Gastrointestinal: Gastrointestinal: Denies abdominal pain, Denies diarrhea, Reports nausea and Reports vomiting Genitourinary: Genitourinary: Denies dysuria Neurologic: Reports weakness [facility] Past Medical History Medical History Anemia Anxiety Arthritis Chronic GERD Depression Diabetes High cholesterol HTN (hypertension) Hyperlipidemia Impingement syndrome, shoulder, left Insulin dependent diabetes mellitus Local recurrence of malignant neoplasm of esophagus SUDHIR (obstructive sleep apnea) Port-A-Cath in place Seasonal allergies Tendinitis of left rotator cuff Vision abnormalities Surgical History Surgical History History of arthroscopy of left knee History of esophagectomy Family History Family History Grandparent Diabetes mellitus Family history of cardiovascular disease Sibling Hypertension Mother Family history of elevated blood lipids Other Arthritis Malignant neoplasm Social History Social History Smoking status: Never smoker Exam Const: General: alert and ill appearing acutely Orientation/consciousness: patient oriented x3 Other: Mild distress HENMT: Head: normal to inspection Neck: Neck: normal visual inspection Resp: Effort & Inspection: normal respiratory effort Auscultation: clear to auscultation bilaterally Cardio: Rate: tachycardic Rhythm: regular rhythm GI: Inspection: non-distended GI Palp: Yes Soft to palpation and No Tenderness to palpation present (GI) Skin: General skin exam: pallor Neuro: General: patient oriented x3, moves all extremities, no focal motor deficits and CN's II-XI intact bilaterally Speech: normal speech Gait exam (Neuro): Normal gait present Extrem: General: normal to inspection and no edema Psych: Mental Status: mental status grossly normal Affect: normal affect Course Vital Signs Vital signs: Vital Signs Temperature 36.6 C 04/20/20 10:09 Pulse Rate 116 H 04/20/20 10:09 Respiratory Rate 18 04/20/20 10:09 Blood Pressure 88/48 L 04/20/20 10:09 Pulse Oximetry 99 04/20/20 10:09 Temperature 37.3 C 04/20/20 15:20 Pulse Rate 111 H 04/20/20 15:20 Respiratory Rate 18 04/20/20 15:20 Blood Pressure 123/72 04/20/20 15:20 Pulse Oximetry 98 04/20/20 15:20 MDM - Nausea/Vomiting/Diarrhea MDM Narrative Medical decision
--- NOTE | 2020-04-20 10:15 | ECG_ITS ---
Measurements Intervals [place] Rate: 108 P: 37 ME: 139 QRS: 15 QRSD: 88 T: 48 QT: 315 QTc: 422 Interpretive Statements SINUS TACHYCARDIA EARLY PRECORDIAL R/S TRANSITION INFERIOR INFARCT, AGE INDETERMINATE BASELINE ARTIFACT- II, III ABNORMAL ECG Electronically Signed On 04-20-2020 14:00:19 STUDIO DATA ANALYST by Julio De La Torre D.O.
[2020-04-20] MEDS: SODIUM CHLORIDE 0.9% IV 1,000 ML 999 ML (10:31)
[2020-04-20 10:41] LABS: Basophils Absolute Auto 0.1 K/mm3 (0.0-0.1); Basophils Percent Auto 0.4 % (0.2-1.2); Eosinophils Absolute Auto 0.1 K/mm3 (0-0.3); Eosinophils Percent Auto 0.4 % (0-4.4); Hematocrit 24.4 % (42.0-52.0); Hemoglobin 7.8 g/dL (14.0-18.0); Immature Granulocyte Absolute 0.11 K/mm3 (0.00-0.031); Immature Granulocyte Percent A 0.7 % (0-0.5); Lymphocytes Percent Auto 3.2 % (18.3-44.2); Mean Corpuscular Hemoglobin 29.8 pg (26-34); Mean Corpuscular Volume 93.1 fl (80-100); Mean Platelet Volume 8.4 fl (7.4-10.4); Monocytes Absolute Auto 1.2 K/mm3 (0.1-0.6); Monocytes Percent Auto 7.9 % (2.6-8.5); Neutrophils Absolute Auto 13.6 K/mm3 (1.3-6.7); Neutrophils Percent Auto 87.4 % (45.5-73.1); Platelet Count Result 259 k/mm3 (150-375); Red Blood Count 2.62 M/mm3 (4.6-6.20); Red Cell Distribution Width 13.2 % (11.5-14.5); White Blood Count 15.5 K/mm3 (4.5-10.0)
[2020-04-20 10:52] LABS: Alanine Aminotransferase 12 U/L (4-50); Albumin Level 3.1 g/dL (3.5-5.1); Alkaline Phosphatase 72 U/L (38-126); Anion Gap 6 mmol/L (8-16); Aspartate Amino Transferase 21 U/L (17-59); Bilirubin,Total 0.3 mg/dL (0.2-1.3); Blood Urea Nitrogen 17 mg/dL (9-20); Calcium 8.1 mg/dL (8.4-10.2); Carbon Dioxide 28 mmol/L (22-30); Chloride 103 mmol/L (98-107); Estimated CRCL calculation 139 ml/min; Estimated Glomerular Filt Rate > 60; Glucose 187 mg/dL (75-110); Sodium 137 mmol/L (137-145)
--- NOTE | 2020-04-20 11:43 | PC.NURSE ---
Pt given urinal for urine sample
--- NOTE | 2020-04-20 11:54 | PC.NURSE ---
called blood bank, asked for TS XM [id number]
[2020-04-20 12:24] LABS: Add Urine Microscopic? YES; Appearance Urine Clear (Clear); Bacteria Urine Trace /hpf; Bilirubin Urine Negative (Negative); Blood Urine Negative (Negative); Color Urine Yellow (Yellow); Glucose Urine UA 1+ mg/dL (Negative); Hyaline Casts Urine 30-49 /lpf; Ketones Urine 1+ mg/dL (Negative); Leukocyte Esterase Ur Negative LEU/UL (Negative); Mucus Urine Heavy /lpf; Nitrate Urine Negative (Negative); Protein Urine Negative (Negative); RBC Urine 21-50 /hpf (0-2); Urobilinogen Urine Negative mg/dL (<2.0)
[2020-04-20] MEDS: PANTOPRAZOLE SODIUM IV 40 MG VIAL 80 MG IV PUSH (13:35)
[2020-04-20] MEDS: SODIUM CHLORIDE 0.9% IV 250 ML 30 ML IV CONT (13:35)
[2020-04-20] MEDS: TUBING, BLOOD PLUM PUMP TUBING 1 EACH XX (13:35)
--- NOTE | 2020-04-20 14:34 | PC.NURSE ---
report given to Mary at [facility]
--- NOTE | 2020-04-20 14:35 | PC.NURSE ---
[facility] declined transfer to [facility] accepted transfer to [facility] [address] Trip# [id number]
--- NOTE | 2020-04-20 14:55 | PC.NURSE ---
[facility] [address]
--- NOTE | 2020-04-20 15:09 | CONS_ITS ---
DATE OF CONSULTATION: 04/20/2020 HISTORY OF PRESENT ILLNESS: A 54-year-old male seen in the ER room 1. He is seen with his , present for the entire visit. He has a history of esophageal cancer, status post gastric pull-through or resection with gastric pull-through in April 2017. He has also had neoadjuvant chemoradiation. He has also just finished a second course of radiation for recurrence 1 year ago. Other medical history includes hypertension, hyperlipidemia, insulin-requiring diabetes mellitus, sleep apnea, left shoulder impingement, osteoarthritis, anxiety, depression, left knee surgery. He now presents for evaluation of chest pain and hematemesis. I am now asked to provide GI evaluation at the request of the hospital over site of the ER service. His primary care provider is Dr. Hdz. Primary oncologist Dr. Ham. The patient states that he was fairly well until April 18, 09:00 p.m. when he developed chest pain that radiated to his shoulder. He had nausea and vomiting of some dark material and went to the ER in [place]. He felt better after some medication and was sent home. The next day, he had two small episodes of hematemesis and felt better afterwards. This morning, he had nausea and vomiting with bright red blood. He felt weak and lightheaded. He now presents for further evaluation. REVIEW OF SYSTEMS: He has significant heartburn and takes lots of Tums. He has lost 10 pounds over the past 3 months. He takes ibuprofen 400 mg daily for about 3 times a week, but no aspirin. He otherwise denies abdominal pain, trouble swallowing, diarrhea, constipation, hematochezia, melena, fever, jaundice, scleral icterus, dark urine, light stools, itching, hot or cold intolerance, shortness of breath at rest, hematuria, dysuria, new cough or visual changes, easy bruising, tingling of the skin, bone pain or tremors. No endocarditis risk factors. ALLERGIES: TAMSULOSIN. MEDICATIONS: See list and includes omeprazole and ibuprofen 400 mg daily 3 times a week. SOCIAL HISTORY: Nonsmoker, nondrinker. FAMILY HISTORY: Negative for GI malignancy. A colonoscopy done October of [address] Ham showed fairly poor preparation and 3 mm rectal polyp removed. I do not have the pathology. PHYSICAL EXAMINATION: GENERAL: Slender male, lying in bed, no apparent distress. He has no lower extremity edema, jaundice, spider angioma, palmar erythema. SKULL: Normocephalic, atraumatic. Pupils nonicteric. Oropharynx clear. NECK: Supple without thyromegaly. LUNGS: Clear to auscultation. HEART: Rate and rhythm regular. S1, S2 normal. ABDOMEN: Bowel sounds soft, nontender, nonrigid, nondistended without hepatosplenomegaly or masses. RECTAL: Deferred. NEUROLOGIC: Conscious and alert x3. LABORATORY DATA: Today show hemoglobin 8, hematocrit 24, MCV 93. LFTs are normal. On April 18, hematocrit 29, white count 14, lipase 29. Stool heme negative. On 03/12/2020, hematocrit 38. B12 greater than 1000, folate of 10. On October 05, 2019, ferritin is 6 and iron 82, TIBC 489, percent sat is 17. IMAGING: The patient has had CT scan and CT-PET scan in the past week or so showing concern for recurrence of hiatus with a mass, this is increasing in size. I cannot tell if this is intra or extraluminal. ASSESSMENT AND PLAN: 1. GERD. Continue PPI, IV and Tums as needed. 2. Antacids as needed. 3. Acute blood loss anemia with hematemesis, abnormal imaging digestive with likely recurrence on imaging and iron deficiency anemia in the past. Certainly concern for recurrence of GI or esophageal cancer. At this point, patient does not appear to be actively GI bleeding. We will follow H and H, transfuse as needed. Would avoid aspirin, nonsteroidals and
--- NOTE | 2020-05-02 08:53 | PC.NURSE ---
LATE ENTRY This note is being entered to document information to the patient's record. The following information was omitted on [05/02/20], by [Georgette OROZCO stopped at 1519 on 04/20/20].
== END 2020-04-20 15:48 | disposition short-term general hospital (02) ==
PROVIDERS: Emergency Provider Emergency Medicine; PCP Internal Medicine
DX: K92.0 Hematemesis (principal); D62 Acute posthemorrhagic anemia; C15.9 Malignant neoplasm of esophagus, unspecified; I10 Essential (primary) hypertension; E78.5 Hyperlipidemia, unspecified; E11.9 Type 2 diabetes mellitus without complications; Z79.4 Long term (current) use of insulin; G47.30 Sleep apnea, unspecified; M19.90 Unspecified osteoarthritis, unspecified site; K21.9 Gastro-esophageal reflux disease without esophagitis
CPT/HCPCS: 36415; 36430; 71046; 80053; 81001; 85025; 86850; 86900; 86901; 86923; 93005; 96361; 96374; 99285; C9113; J7030; J7050; P9016

== ENCOUNTER 2020-04-29 15:43 | Outpatient (CLI) | payer BC, SELFPAY ==
[2020-04-29 15:56] LABS: Basophils Absolute Auto 0.08 K/mm3 (0.00-0.10); Basophils Percent Auto 0.8 % (0.0-1.0); Eosinophils Absolute Auto 0.14 K/mm3 (0.02-0.50); Eosinophils Percent Auto 1.4 % (1.0-6.0); Hematocrit 33.7 % (40.0-54.0); Immature Granulocyte Absolute 0.04 K/mm3 (0.00-0.00); Immature Granulocyte Percent A 0.4 % (0.0-0.0); Lymphocytes Percent Auto 6.1 % (18.0-42.0); Mean Corpuscular HGB Conc 32.6 g/dL (32.0-36.0); Mean Corpuscular Hemoglobin 28.9 pg (27.0-31.0); Mean Corpuscular Volume 88.7 fL (78.0-102.0); Mean Platelet Volume 8.4 fl (8.7-11.0); Monocytes Absolute Auto 1.36 K/mm3 (0.10-0.90); Monocytes Percent Auto 13.8 % (2.0-11.0); Neutrophils Absolute Auto 7.6 K/mm3 (1.7-7.2); Neutrophils Percent Auto 77.5 % (50.0-70.0); Platelet Count Result 768 K/mm3 (150-420); Red Cell Distribution Width 14.1 % (11.6-14.4); White Blood Count 9.9 K/mm3 (4.8-10.8)
[2020-04-29 16:11] LABS: Partial Thromboplastin Time 30.3 SEC (23.90-30.70); Prothrombin Time 11.2 Seconds (9.50-12.10)
[2020-04-29 18:25] LABS: Alanine Aminotransferase 18 U/L (16-63); Albumin Level 2.6 g/dL (3.4-5.0); Alkaline Phosphatase 114 U/L (46-116); Anion Gap 13 mmol/L (8-16); Aspartate Amino Transferase 21 U/L (15-37); Bilirubin,Total 0.2 mg/dL (0.00-1.00); Blood Urea Nitrogen 7 mg/dL (7-18); Calcium 8.4 mg/dL (8.5-10.1); Carbon Dioxide 23 mmol/L (21-32); Chloride 99 mmol/L (98-108); Estimated Glomerular Filt Rate > 60; Glucose 205 mg/dL (70-99); Osmolality Calculated 284 mOsm/kg (285-295); Potassium 4.1 mmol/L (3.5-5.1); Sodium 135 mmol/L (136-145); Total Protein 6.7 g/dL (6.4-8.2)
== END 2020-04-29 15:44 | disposition home or self-care (01) ==
LOC: CHSLAB 15:45
PROVIDERS: PCP Internal Medicine; Visit Provider Internal Medicine
DX: Z09 Encounter for follow-up examination after completed treatment for conditions other than malignant neoplasm (principal); K92.2 Gastrointestinal hemorrhage, unspecified
CPT/HCPCS: 36415; 80053; 85025; 85610; 85730

== ENCOUNTER 2020-06-01 15:51 | Emergency (ER) | payer OTHER, BC, SELFPAY ==
[2020-06-01] VITALS (53 sets, daily range): BP systolic 72–106; BP diastolic 42–89; PULSE 99–137; RESP 8–26; TEMP 36.1–37.3; O2SAT 97–100
--- NOTE | 2020-06-01 15:54 | ED.GIBLEED ---
HPI - GI Bleed General Chief complaint: GI Bleed Stated complaint: ambulance Time Seen by Provider: 06/01/20 15:54 Source: patient and EMS Mode of arrival: EMS Limitations: no limitations History of Present Illness HPI Narrative: Patient states he was at home when he felt weak and went down on the floor. He vomited bright red blood and clots. Emergency services called they arrived finding the patient pale week radial pulses and hypotensive 50/30. He is also tachycardic in the 140s. complaint: gross hematemesis Onset (ago): minute(s) (50) Pain Consistency: constant Severity: mild Relieving factors: none Exacerbating factors: none Context: history of GI bleed and other (Esophageal cancer) Associated symptoms: weakness Treatments Prior to Arrival: none Related Data Home Medications Medication Instructions Recorded Confirmed Lantus U-100 Insulin 10 unit SUBCUT DAILY 02/15/19 06/01/20 escitalopram oxalate 40 mg PO DAILY 02/15/19 06/01/20 lorazepam 0.5 mg PO BID PRN 02/15/19 06/01/20 pravastatin 10 mg PO DAILY 02/15/19 06/01/20 duloxetine 20 mg PO DAILY 10/24/19 06/01/20 pantoprazole [Protonix] 40 mg PO BID 05/15/20 06/01/20 Allergies Allergy/AdvReac Type Severity Reaction Status Date / Time tamsulosin Allergy Intermediate HIVES Verified 02/12/20 10:07 [facility] Past Medical History Medical History Anemia Anxiety Arthritis Chronic GERD Depression Diabetes High cholesterol HTN (hypertension) Hyperlipidemia Impingement syndrome, shoulder, left Insulin dependent diabetes mellitus Local recurrence of malignant neoplasm of esophagus SUDHIR (obstructive sleep apnea) Port-A-Cath in place Seasonal allergies Tendinitis of left rotator cuff Vision abnormalities Surgical History Surgical History History of arthroscopy of left knee History of esophagectomy Family History Family History Grandparent Diabetes mellitus Family history of cardiovascular disease Sibling Hypertension Mother Family history of elevated blood lipids Other Arthritis Malignant neoplasm Social History Social History Smoking status: Never smoker Exam Const: General: alert and ill appearing acutely Nutritional Appearance: thin Orientation/consciousness: patient oriented x3 HENMT: Ears: external ears normal Face and sinus: normal facial exam Mouth: Yes dry mucous membranes and Yes Abnormal oral and palatal mucosa present Eyes: Conjunctivae: conjunctival abnormality bilateral pallor Pupils: Equal, round and reactive pupils present EOM: EOMs intact bilaterally Neck: Neck: normal visual inspection Resp: Effort & Inspection: normal respiratory effort Auscultation: clear to auscultation bilaterally Cardio: Rate: tachycardic Rhythm: regular rhythm GI: GI Palp: Yes Soft to palpation and Yes Tenderness to palpation present (GI) ( mild, diffusely) Auscultation: normal bowel sounds Back/Spine/Pelvis: Cervical Spine: cervical ROM normal Thoracic/Lumbar Spine: thoraco-lumbar ROM normal Skin: General skin exam: pallor Neuro: General: patient oriented x3, moves all extremities and no focal motor deficits Speech: normal speech Motor exam (neuro): 5/5 motor strength present throughout Extrem: General: full ROM, no pedal edema and cyanosis of the fingers and of the toes Psych: Appearance: grossly normal and well kempt Mental Status: mental status grossly normal Affect: normal affect Attitude: cooperative Thought content: Yes Normal thought content present Course Course Emergency Course: patient given 2 L of normal saline bolus and typed and crossed for 2 units of blood. After the 2 L of normal saline his blood pressure did improve. Over time as I am waiting for the hospitalist to call me back his blood pressure beg
[2020-06-01] MEDS: SODIUM CHLORIDE 0.9% IV 1,000 ML 999 ML IV CONT ×3 (15:55→17:45)
[2020-06-01] MEDS: PANTOPRAZOLE SODIUM IV 40 MG VIAL 80 MG IV PUSH (15:56)
[2020-06-01 16:08] LABS: Hematocrit 22.2 % (40.0-54.0); Mean Corpuscular HGB Conc 30.6 g/dL (32.0-36.0); Mean Corpuscular Hemoglobin 28.5 pg (27.0-31.0); Mean Corpuscular Volume 92.9 fL (78.0-102.0); Mean Platelet Volume 9.3 fl (8.7-11.0); Platelet Count Result 299 K/mm3 (150-420); Red Blood Count 2.39 M/mm3 (4.70-6.10); Red Cell Distribution Width 16.6 % (11.6-14.4)
[2020-06-01 16:12] LABS: Glucose Point of Care 302 (65-105)
[2020-06-01 16:16] LABS: Hemoglobin 6.8 g/dL (14.0-18.0); White Blood Count 33.2 K/mm3 (4.8-10.8)
[2020-06-01 16:17] LABS: Alanine Aminotransferase 11 U/L (16-63); Albumin Level 1.9 g/dL (3.4-5.0); Alkaline Phosphatase 162 U/L (46-116); Ammonia 46 umol/L (11-32); Anion Gap 23 mmol/L (8-16); Aspartate Amino Transferase 14 U/L (15-37); Blood Urea Nitrogen 21 mg/dL (7-18); Calcium 7.6 mg/dL (8.5-10.1); Carbon Dioxide 14 mmol/L (21-32); Chloride 100 mmol/L (98-108); Estimated Glomerular Filt Rate > 60; Glucose 356 mg/dL (70-99); INR 1.2; Magnesium 2.1 mg/dL (1.8-2.4); Osmolality Calculated 301 mOsm/kg (285-295); Partial Thromboplastin Time 43.8 SEC (23.90-30.70); Prothrombin Time 12.4 Seconds (9.50-12.10); Sodium 137 mmol/L (136-145)
[2020-06-01 16:27] LABS: Bilirubin,Total 0.1 mg/dL (0.00-1.00)
[2020-06-01 16:41] LABS: Band Neutrophils Percent 3 % (0-6); Basophils Percent Manual 0 % (0-1); Eosinophils Percent Manual 0 % (1-6); Lymphocytes Absolute Manual 2.65 K/mm3 (1.1-4.5); Lymphocytes Percent Manual 8 % (18-44); Monocytes Absolute Manual 2.65 K/mm3 (0.1-0.90); Monocytes Percent Manual 8 % (3-9); Neutrophils Absolute Manual 26.89 K/mm3 (1.3-6.7); Neutrophils Percent Manual 78 % (46-73); Total Cells Counted 100
[2020-06-01 16:42] LABS: Metamyelocytes Percent 3 %; Nucleated Red Blood Cells 2 %; Platelet Estimate Adequate (Adequate)
--- NOTE | 2020-06-01 16:42 | PC.NURSE ---
HUMULIN R INSULIN 10 UNITS PROVIDED APPROVED BY ERP WITH SHEREE NATHAN WITNESS
--- NOTE | 2020-06-01 16:49 | PC.NURSE ---
[facility] TRANSFER LINE CONTACTED AT [id number]. AWAITING CALL BACK.
--- NOTE | 2020-06-01 17:17 | PC.NURSE ---
1717 [facility] TRANSFER LINE CALLED [facility] BACK AND SPOKE WITH ERP DR. ALVAREZ
[2020-06-01 17:18] LABS: Glucose Point of Care 274 (65-105)
[2020-06-01] MEDS: SODIUM CHLORIDE 0.9% IV 250 ML 30 ML IV CONT (17:30)
--- NOTE | 2020-06-01 18:09 | PC.NURSE ---
PRBC INCREASED TO 200 ML/HR PER ERP
--- NOTE | 2020-06-01 18:29 | PC.NURSE ---
[facility] FROM [facility] CONTACTED ER AT THIS TIME AND SPOKE WITH IAIN ALVAREZ
--- NOTE | 2020-06-01 18:36 | PC.NURSE ---
ALL BELONGINGS TAKEN HOME BY SPOUSE
[2020-06-01] MEDS: LORazepam INJ (*CRX) 2 MG/ML VIAL 1 MG IV PUSH (18:45)
[2020-06-01] MEDS: SODIUM CHLORIDE 0.9% IV 100 ML 10 ML (18:45)
--- NOTE | 2020-06-01 19:11 | PC.NURSE ---
PROTONIX GTT INFUSING PER [facility] PROTOCOL, 80 MG PROTONIX IN 100 ML NS AT 10 ML/HR. ERP AWARE AND APPROVED.
--- NOTE | 2020-06-01 19:36 | PC.NURSE ---
1924 URINE SAMPLE SENT TO LAB
--- NOTE | 2020-06-01 19:36 | PC.NURSE ---
191 [facility] PAGED FOR TRANSFER. DENIED. 1924 [facility] PAGED FOR TRANSFER. IN ROUTE AT 193
[2020-06-01 19:50] LABS: Add Urine Microscopic? YES; Appearance Urine Clear (Clear); Bilirubin Urine Negative (Negative); Blood Urine Negative (Negative); Color Urine Yellow (Yellow); Glucose Urine UA 2+ (Negative); Ketones Urine Negative (Negative); Leukocyte Esterase Ur Negative LEU/UL (Negative); Nitrate Urine Negative (Negative); Protein Urine Negative (Negative); Urobilinogen Urine 0.2 mg/dL (0.2-1.0); pH Urine 6.5 (5.0-8.0)
[2020-06-01 19:58] LABS: Calcium Carbonate Crystals Ur Present /hpf
[2020-06-01 20:03] LABS: SARS-CoV-2 Ag Negative (Negative)
[2020-06-01 21:59] LABS: Reflex Lactic Acid Yes or No Add Lactic
== END 2020-06-01 20:00 | disposition short-term general hospital (02) ==
PROVIDERS: Emergency Provider Emergency Medicine; PCP Internal Medicine
DX: K92.2 Gastrointestinal hemorrhage, unspecified (principal); D64.9 Anemia, unspecified
CPT/HCPCS: 36415; 36430; 80053; 81001; 82140; 82948; 83605; 83735; 85025; 85610; 85730; 86850; 86900; 86901; 86923; 87426; 96361; 96365; 96375; 99285; C9113; C9803; J1815; J2060; J7030; J7050; P9016

== ENCOUNTER 2020-07-10 12:02 | Emergency (ER) | payer BC, OTHER, SELFPAY ==
[2020-07-10] VITALS (8 sets, daily range): BP systolic 114–138; BP diastolic 71–91; PULSE 78–87; RESP 20; TEMP 36.3; O2SAT 96–100
--- NOTE | ~2020-07-10 | CT_ITS ---
EXAMINATION: CTA abdomen pelvis DATE: 07/10/2020 14:10 INDICATION: Abdominal pain. History of recent splenic artery rupture. TECHNIQUE: Computed tomography (CT) of the abdomen and pelvis was performed with 100 cc Omnipaque 350 intravenous contrast. Automated exposure control and iterative reconstruction technique were employe d. Exam dose: 336.87 mGy-cm total exam DLP. COMPARISON: 04/18/2020 CTA chest abdomen pelvis FINDINGS: There is mild atelectasis at the lung bases. Normal heart size. No pericardial or pleural effusion. Status post esophagectomy and gastric pull-through surgery. No hepatic space-occupying mass lesion. The gallbladder appears unremarkable. No bile duct or pancrea tic duct dilatation. No pancreatic mass lesion or calcification is evident. There is interval infarction of most of the spleen since 04/18/2020. There are multiple clips or coil s in the upper mid abdomen. The splenic artery is occluded. Normal morphology of the adrenal glands. No renal mass lesion or scarring or urinary tract calculus or hydroureteronephrosis is evident. There is mild diffuse thickening of the urinary bladder wall. The prostate gland and seminal vesicles are unremarkable. Normal caliber of the abdominal aorta. No abdominal aortic aneurysm. No intraperitoneal or retroperit urbina or pelvic mass lesion or adenopathy or ascites. Normal appendix. Diverticulosis of the left colon. No CT evidence of diverticulitis. No bowel obstruction, bowel wall thickening or pneumatosis or intraperitoneal free air. Included skeletal structures are unremarkable. 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 Reviewed, dictated and finalized at [facility]. 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
--- NOTE | 2020-07-10 12:21 | ECG_ITS ---
Measurements Intervals [place] Rate: 83 P: 35 [place]: 142 QRS: 32 QRSD: 86 T: 44 QT: 366 QTc: 431 Interpretive Statements SINUS RHYTHM EARLY PRECORDIAL R/S TRANSITION BASELINE ARTIFACT- I, II, III BORDERLINE ECG Electronically Signed On 07-10-2020 13:40:50 CDT by Julio De La Torre D.O.
[2020-07-10 12:45] LABS: Appearance Urine Cloudy (Clear); Bilirubin Urine Negative (Negative); Color Urine Yellow (Yellow); Glucose Urine UA Negative (Negative); Ketones Urine Negative (Negative); Leukocyte Esterase Ur 1+ (Negative); Nitrate Urine Negative (Negative); Protein Urine Negative (Negative); Urobilinogen Urine 0.2 mg/dL (0.2-1.0)
[2020-07-10 12:47] LABS: Hematocrit 34.1 % (40.0-54.0); Hemoglobin 10.8 g/dL (14.0-18.0); Immature Platelet Fraction Pct 1.1 % (1.0-7.0); Mean Corpuscular HGB Conc 31.7 g/dL (32.0-36.0); Mean Corpuscular Hemoglobin 27.8 pg (27.0-31.0); Mean Corpuscular Volume 87.9 fL (78.0-102.0); Mean Platelet Volume 8.6 fl (8.7-11.0); Platelet Count Result 657 K/mm3 (150-420); Red Blood Count 3.88 M/mm3 (4.70-6.10); Red Cell Distribution Width 16.2 % (11.6-14.4); White Blood Count 14.8 K/mm3 (4.8-10.8)
[2020-07-10 12:49] LABS: Add Urine Microscopic? YES; Amorphous Sediment Urine Moderate; Bacteria Urine 1+ /hpf; Blood Urine Trace-Intact (Negative); RBC Urine 0-2 /hpf (0-2); Transitional Epi Cells Urine Rare /hpf
--- NOTE | 2020-07-10 12:49 | ED.GENADULT ---
HPI - General Adult General Chief complaint: Abdominal Pain Stated complaint: severe abd pain gastric bleed [id number] ago Source: patient and family Mode of arrival: ambulatory Limitations: no limitations History of Present Illness HPI narrative: Lazarus is a 54M with a complex PMH including HTN, insulin dependent DMII, OA, SUDHIR, anxiety, kidney stones, esophageal cancer d/t Christopher's esophagus s/p surgery currently on chemo, recent GI bleed and recent splentic artery rupture s/p coiling that presented to the ED with LUQ pain and left flank pain. He generally feels ill d/t his chronic medical conditions but 30 minutes before coming to the ER he became nauseated and had the severe cramping left flank and RUQ pain that reminded him of his previous episode of GI bleed/splenic artery rupture so he came to the ED. No vomiting, diarrhea, melena, hematochezia, fevers, chills, CP or SOB. Related Data Home Medications Medication Instructions Recorded Confirmed Lantus U-100 Insulin 10 unit SUBCUT DAILY 02/15/19 07/10/20 escitalopram oxalate [Lexapro] 40 mg PO DAILY 02/15/19 07/10/20 lorazepam 0.5 mg PO BID PRN 02/15/19 07/10/20 pravastatin 10 mg PO DAILY 02/15/19 07/10/20 duloxetine 20 mg PO DAILY 10/24/19 07/10/20 pantoprazole [Protonix] 40 mg PO BID 05/15/20 07/10/20 acetaminophen-codeine 1 tablet PO Q6-12H PRN 07/10/20 07/10/20 midodrine 5 mg PO TID 07/10/20 07/10/20 Allergies Allergy/AdvReac Type Severity Reaction Status Date / Time tamsulosin Allergy Intermediate HIVES Verified 07/10/20 13:50 Review of Systems Constitutional: Constitutional: Denies chills, Reports fatigue and Denies fever(s) Eyes: Eyes: Reports no additional eye complaints ENT: Reports system reviewed and no additional complaints, except as documented Cardiovascular: Cardiovascular: Reports no additional cardiovascular complaints Respiratory: Respiratory: Reports no additional respiratory complaints Gastrointestinal: Gastrointestinal: Reports as per HPI Genitourinary: Comments: admits a little dysuria Musculoskeletal: Musculoskeletal: Reports no additional musculoskeletal complaints Integumentary/Breasts: Skin/Breast: Reports system reviewed and no additional complaints, except as docu Neurologic: Reports system reviewed and no additional complaints, except as documented Psychiatric: Psychiatric: Reports anxiety Endocrine: Endocrine: Reports no additional endocrine complaints Hematologic/Lymphatic: Hematologic/Lymphatic: Reports no additional hematologic/lymphatic complaints Allergic/Immunologic: Allergic/Immunologic: Reports no additional allergic/immunologic complaints COUNTS INCLUDE 234 BEDS AT THE [facility] Past Medical History Medical History Anemia Anxiety Arthritis Chronic GERD Depression Diabetes High cholesterol HTN (hypertension) Hyperlipidemia Impingement syndrome, shoulder, left Insulin dependent diabetes mellitus Local recurrence of malignant neoplasm of esophagus SUDHIR (obstructive sleep apnea) Port-A-Cath in place Seasonal allergies Tendinitis of left rotator cuff Vision abnormalities Surgical History Surgical History History of arthroscopy of left knee History of esophagectomy Family History Family History Grandparent Diabetes mellitus Family history of cardiovascular disease Sibling Hypertension Mother Family history of elevated blood lipids Other Arthritis Malignant neoplasm Social History Social History Smoking status: Never smoker Gender identity (if verbalized by the patient): Male Exam Const: General: alert Orientation/consciousness: patient oriented x3 Limitations: No altered mental status Other: Was in minimal to moderate distress when walking in but was better during exam. HENMT: Head: normal to inspe
[2020-07-10 12:54] LABS: Prothrombin Time 10.6 Seconds (9.50-12.10)
[2020-07-10 13:01] LABS: Alanine Aminotransferase 25 U/L (16-63); Albumin Level 3.2 g/dL (3.4-5.0); Alkaline Phosphatase 101 U/L (46-116); Anion Gap 11 mmol/L (8-16); Aspartate Amino Transferase 22 U/L (15-37); Bilirubin,Total 0.3 mg/dL (0.00-1.00); Blood Urea Nitrogen 10 mg/dL (7-18); Calcium 9.2 mg/dL (8.5-10.1); Carbon Dioxide 27 mmol/L (21-32); Chloride 99 mmol/L (98-108); Estimated Glomerular Filt Rate > 60; Glucose 151 mg/dL (70-99); Lipase 30 U/L (73-393); Osmolality Calculated 286 mOsm/kg (285-295); Potassium 3.6 mmol/L (3.5-5.1); Sodium 137 mmol/L (136-145); Total Protein 7.4 g/dL (6.4-8.2)
[2020-07-10 13:03] LABS: Lactic Acid Reflex 3.2 mmol/L (0.4-2.0)
[2020-07-10] MEDS: MORPHINE SULFATE (*CRX) 4 MG/ML INJ IV PUSH ×2 (13:04→17:45)
[2020-07-10] MEDS: LORazepam INJ (*CRX) 2 MG/ML VIAL 0.5 MG IV PUSH (13:05)
[2020-07-10 13:10] LABS: Total Cells Counted 100
[2020-07-10 13:11] LABS: Band Neutrophils Percent 6 % (0-6); Basophils Absolute Manual 0.44 K/mm3 (0-0.1); Basophils Percent Manual 3 % (0-1); Eosinophils Percent Manual 0 % (1-6); Lymphocytes Absolute Manual 0.88 K/mm3 (1.1-4.5); Lymphocytes Percent Manual 6 % (18-44); Metamyelocytes Percent 2 %; Monocytes Absolute Manual 0.44 K/mm3 (0.1-0.90); Monocytes Percent Manual 3 % (3-9); Myelocytes Percent 2 %; Neutrophils Absolute Manual 12.43 K/mm3 (1.3-6.7); Neutrophils Percent Manual 78 % (46-73); Platelet Estimate Increased (Adequate)
[2020-07-10 13:12] LABS: Troponin I 4.7 ng/L (0.00-60.4)
[2020-07-10 15:41] LABS: Reflex Lactic Acid Yes or No Add Lactic
[2020-07-10 16:21] LABS: Lactic Acid 1.7 mmol/L (0.4-2.0)
[2020-07-10] MEDS: ACETAMINOPHEN 325 MG TABLET 650 MG PO (17:15)
== END 2020-07-10 19:51 | disposition home or self-care (01) ==
PROVIDERS: Emergency Provider Family Medicine; PCP Internal Medicine
DX: D73.5 Infarction of spleen (principal); C15.9 Malignant neoplasm of esophagus, unspecified; N39.0 Urinary tract infection, site not specified
CPT/HCPCS: 36415; 74174; 80053; 81001; 83605; 83690; 84484; 85025; 85055; 85610; 86850; 86900; 86901; 93005; 96365; 96375; 96376; 99284; A9270; J0696; J2060; J2270; Q9967

== ENCOUNTER 2020-09-06 09:25 | Emergency (ER) | payer BC, OTHER, SELFPAY ==
--- NOTE | ~2020-09-06 | CT_ITS ---
EXAMINATION: CT abdomen pelvis w con DATE: 09/06/2020 10:08 INDICATION: Low abdominal pain. TECHNIQUE: Computed tomography (CT) of the abdomen and pelvis was performed with 100 mL Omnipaque 350 intravenous contrast. Automated exposure control and iterative reconstruction technique were employe d. The dose-length product was 249.47 mGy-cm. COMPARISON: CTA 07/10/2020 FINDINGS: The visualized portions of the lung bases demonstrate mild atelectasis. No pleural effusion . The heart size is normal. There are coronary artery calcifications. No pericardial effusion. There are changes of esophagectomy with gastric pull-through procedure. There is an ill-defined centrally n ecrotic mass to the left of the stomach at the diaphragmatic hiatus that is contiguous with the lumen of the stomach and invades the pancreas and left adrenal gland. The mass encases the celiac axis and causes moderate stenosis of common hepatic artery and total occlusion of splenic artery. Again seen is infarct of the majority of the spleen. The liver, gallbladder, right adrenal gland, and kidneys ar e normal. The appendix is normal. There is a moderate volume of stool in the colon, predominantly in the proximal colon. The ascending and transverse colon are distended. There is a 10 x 11 mm left para esophageal lymph node. There is no free intraperitoneal fluid. There is no significant stenosis of perdomo perior mesenteric artery, inferior mesenteric artery, or the renal arteries. There is mild lumbar spo ndylosis. IMPRESSION: 1. Necrotic mass at the esophageal hiatus with invasion of the stomach, pancreas, and left adrenal gl and and encasement of the celiac axis, consistent with metastatic esophageal cancer. 2. Borderline enlarged left paraesophageal lymph node, likely metastatic disease. 3. 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 4. 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 No significant stenosis of superior or inferior mesenteric arteries. 5. Distended ascending and transverse colon with prominent stool. No specific evidence of focal colon obstruction. Reviewed, dictated and finalized at location [facility]. IMPRESSION: 1. Necrotic mass at the esophageal hiatus with invasion of the stomach, pancrea s, and left adrenal gland and encasement of the celiac axis, consistent with me tastatic esophageal cancer. 2. Borderline enlarged left paraesophageal lymph node, likely metastatic diseas e. 3. 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 4. 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 No significant stenosis of superior or inferior mesenteric arteries. 5. Distended ascending and transverse colon with prominent stool. No specific e vidence of focal colon obstruction.
[2020-09-06 09:30] VITALS: BP 172/104; PULSE 93; RESP 26; TEMP 36.4; O2SAT 100
[2020-09-06] MEDS: MORPHINE SULFATE INJ (*CRX) 10 MG/ML AMP ×2 (09:47→13:02)
[2020-09-06] MEDS: LORazepam INJ (*CRX) 2 MG/ML VIAL 1 MG IV PUSH (09:52)
--- NOTE | 2020-09-06 09:54 | ECG_ITS ---
Measurements Intervals Nathalie Rate: 100 P: 250 [place]: 68 QRS: 1 QRSD: 87 T: -5 QT: 354 QTc: 458 Interpretive Statements ECTOPIC ATRIAL TACHYCARDIA EARLY PRECORDIAL R/S TRANSITION BORDERLINE T WAVE ABNORMALITY- INFERIOR LEADS BASELINE ARTIFACT- II, III, AVR, AVF ABNORMAL ECG Electronically Signed On 09-06-2020 10:33:46 CDT by Julio De La Torre D.O.
[2020-09-06] MEDS: MORPHINE SULFATE (*CRX) 4 MG/ML INJ 10 MG IV PUSH (10:12)
[2020-09-06] MEDS: SODIUM CHLORIDE 0.9% IV 1,000 ML 999 ML IV CONT (10:14)
[2020-09-06 10:20] VITALS: BP 148/94; PULSE 97; O2SAT 96
[2020-09-06 10:29] LABS: Basophils Absolute Auto 0.06 K/mm3 (0.00-0.10); Basophils Percent Auto 1.2 % (0.0-1.0); Eosinophils Absolute Auto 0.02 K/mm3 (0.02-0.50); Eosinophils Percent Auto 0.4 % (1.0-6.0); Hematocrit 26.5 % (40.0-54.0); Hemoglobin 8.8 g/dL (14.0-18.0); Immature Granulocyte Absolute 0.06 K/mm3 (0.00-0.00); Immature Granulocyte Percent A 1.2 % (0.0-0.0); Lymphocytes Absolute Auto 0.52 K/mm3 (1.10-4.50); Lymphocytes Percent Auto 10.4 % (18.0-42.0); Mean Corpuscular HGB Conc 33.2 g/dL (32.0-36.0); Mean Corpuscular Hemoglobin 28.6 pg (27.0-31.0); Mean Platelet Volume 8.5 fl (8.7-11.0); Monocytes Absolute Auto 0.39 K/mm3 (0.10-0.90); Monocytes Percent Auto 7.8 % (2.0-11.0); Platelet Count Result 435 K/mm3 (150-420); Red Blood Count 3.08 M/mm3 (4.70-6.10); Red Cell Distribution Width 18.6 % (11.6-14.4)
--- NOTE | 2020-09-06 10:32 | ED.GENADULT ---
HPI - General Adult General Chief complaint: Back Pain/Injury Stated complaint: Lower Back Pain Source: patient and family Mode of arrival: wheelchair Limitations: clinical condition (severe pain) History of Present Illness HPI narrative: Pt has espohageal cancer that is metastatic. he has been undergoing chemo, but has had a lot of recent complications. He infarcted his spleen due to mets near the arteries, and has been having a lot of pain. THis bour started last 48 hours, and got increasingly worse gradually. He seemed to have an abrupt change about an hour ago. no fevers no vomiting. Last BM on wednesday. Onset (ago): hour(s) Location: abdomen Radiation: non-radiation Severity: moderate Quality: sharp Pain Consistency: constant Relieving factors: none Exacerbating factors: none Treatments prior to arrival: none Related Data Home Medications Medication Instructions Recorded Confirmed Lantus U-100 Insulin 10 unit SUBCUT DAILY 02/15/19 09/06/20 escitalopram oxalate [Lexapro] 40 mg PO DAILY 02/15/19 09/06/20 lorazepam 0.5 mg PO BID PRN 02/15/19 09/06/20 pravastatin 10 mg PO DAILY 02/15/19 09/06/20 duloxetine 20 mg PO DAILY 10/24/19 09/06/20 pantoprazole [Protonix] 40 mg PO BID 05/15/20 09/06/20 hydrocodone-acetaminophen 2 tablet PO Q8H PRN 09/04/20 09/06/20 Allergies Allergy/AdvReac Type Severity Reaction Status Date / Time tamsulosin Allergy Intermediate HIVES Verified 09/04/20 09:04 Review of Systems Constitutional: Constitutional: Reports no additional constitutional complaints Eyes: Eyes: Reports no additional eye complaints ENT: Reports system reviewed and no additional complaints, except as documented Cardiovascular: Cardiovascular: Reports no additional cardiovascular complaints Respiratory: Respiratory: Reports no additional respiratory complaints Gastrointestinal: Gastrointestinal: Reports abdominal pain, Denies bloating, Reports constipation, Denies heartburn, Denies diarrhea, Denies nausea and Denies vomiting Genitourinary: Genitourinary: Reports no additional male genitourinary complaints Musculoskeletal: Musculoskeletal: Reports no additional musculoskeletal complaints Integumentary/Breasts: Skin/Breast: Reports system reviewed and no additional complaints, except as docu Neurologic: Reports system reviewed and no additional complaints, except as documented Psychiatric: Psychiatric: Reports no additional psychiatric complaints Endocrine: Endocrine: Reports no additional endocrine complaints Hematologic/Lymphatic: Hematologic/Lymphatic: Reports no additional hematologic/lymphatic complaints Allergic/Immunologic: Allergic/Immunologic: Reports no additional allergic/immunologic complaints PMFSH Past Medical History Medical History Anemia Anxiety Arthritis Chronic GERD Depression Diabetes High cholesterol HTN (hypertension) Hyperlipidemia Impingement syndrome, shoulder, left Insulin dependent diabetes mellitus Local recurrence of malignant neoplasm of esophagus SUDHIR (obstructive sleep apnea) Port-A-Cath in place Seasonal allergies Tendinitis of left rotator cuff Vision abnormalities Surgical History Surgical History History of arthroscopy of left knee History of esophagectomy Family History Family History Grandparent Diabetes mellitus Family history of cardiovascular disease Sibling Hypertension Mother Family history of elevated blood lipids Other Arthritis Malignant neoplasm Social History Social History Smoking status: Never smoker Gender identity (if verbalized by the patient): Male Exam Const: General: alert and ill appearing Orientation/consciousness: patient oriented x3 HENMT: Head: normal to inspection Eyes: Conjun
[2020-09-06 10:45] LABS: Alanine Aminotransferase 15 U/L (16-63); Alkaline Phosphatase 80 U/L (46-116); Anion Gap 16 mmol/L (8-16); Aspartate Amino Transferase 10 U/L (15-37); Bilirubin,Total 0.2 mg/dL (0.00-1.00); Blood Urea Nitrogen 16 mg/dL (7-18); Calcium 8.6 mg/dL (8.5-10.1); Carbon Dioxide 20 mmol/L (21-32); Chloride 99 mmol/L (98-108); Estimated Glomerular Filt Rate > 60; Glucose 202 mg/dL (70-99); Lipase 26 U/L (73-393); Osmolality Calculated 287 mOsm/kg (285-295); Potassium 3.2 mmol/L (3.5-5.1); Sodium 135 mmol/L (136-145); Total Protein 6.4 g/dL (6.4-8.2)
[2020-09-06 10:47] LABS: Troponin I < 4.0 ng/L (0.00-60.4)
--- NOTE | 2020-09-06 11:20 | PC.NURSE ---
CALL PLACED TO DR MOFFETT - [phone]
--- NOTE | 2020-09-06 11:20 | PC.NURSE ---
PT RESTING COMFORTABLE, STATES PAIN IS MORE TOLERABLE AT THIS POINT
[2020-09-06 11:26] VITALS: BP 138/83; PULSE 99; O2SAT 95
--- NOTE | 2020-09-06 11:26 | PC.NURSE ---
DR MOFFETT CALLED ON CELL PHONE
[2020-09-06 12:05] LABS: Add Urine Microscopic? YES; Appearance Urine Clear (Clear); Bilirubin Urine Negative (Negative); Blood Urine Negative (Negative); Color Urine Yellow (Yellow); Glucose Urine UA 1+ (Negative); Ketones Urine Negative (Negative); Leukocyte Esterase Ur Negative LEU/UL (Negative); Nitrate Urine Negative (Negative); Protein Urine Negative (Negative); Specific Grav Ur <= 1.005 (1.010-1.020); Urobilinogen Urine 0.2 mg/dL (0.2-1.0); pH Urine 6.5 (5.0-8.0)
[2020-09-06 12:07] LABS: Bacteria Urine None seen /hpf; RBC Urine None seen /hpf (0-2); Squamous Epithelial Cell Urine Rare /hpf (Few); WBC Urine None seen /hpf (0-3)
--- NOTE | 2020-09-06 12:35 | PC.NURSE ---
DR RONDON SPOKE WITH DR MOFFETT
[2020-09-06 13:36] VITALS: BP 137/93
== END 2020-09-06 13:40 | disposition home or self-care (01) ==
PROVIDERS: Emergency Provider Emergency Medicine; PCP Internal Medicine
DX: R52 Pain, unspecified (principal); C15.9 Malignant neoplasm of esophagus, unspecified
CPT/HCPCS: 36415; 74177; 80053; 81001; 83690; 84484; 85025; 93005; 96361; 96374; 96375; 96376; 99283; 99284; J2060; J2270; J7030; Q9967

== ENCOUNTER 2020-09-07 15:34 | Emergency (ER) | payer BC, OTHER, SELFPAY ==
[2020-09-07 15:52] VITALS: BP 130/87; PULSE 83; RESP 20; TEMP 36.7; O2SAT 100
--- NOTE | 2020-09-07 16:05 | ED.BACK ---
HPI - Back Pain/Injury General Chief Complaint: Abdominal Pain Stated Complaint: Spleen and back ache Time Seen by Provider: 09/07/20 15:37 Source: patient Mode of arrival: wheelchair Limitations: no limitations History of Present Illness HPI Narrative: 55-year-old man with a history of metastatic esophageal cancer undergoing chemotherapy comes in today complaining of abdominal and back pain started about 3 days ago. He states that the pain is gradually getting worse. He was seen here yesterday and given IV morphine and Ativan which seemed to help his symptoms. He denies fever, vomiting, jaundice, diarrhea, and chest pain. His oncologist in discussion with the ER doctor yesterday recommended at that time that she go to [facility] for possible nerve block. Patient stated that he felt better and did not wish to transfer this time. He is currently taking hydrocodone. Patient states that fentanyl gives him bad heartburn and does not seem to be working for him. MD elicited complaint: back pain Pertinent past history: cancer Onset (ago): day(s) (3) Timing: constant and progressively worsening Severity: severe Similar Symptoms Previously: Yes Quality: sharp Location: thoracic spine Radiation: none Exacerbating factors: movement Relieving factors: none Related Data Home Medications Medication Instructions Recorded Confirmed Lantus U-100 Insulin 10 unit SUBCUT DAILY 02/15/19 09/06/20 escitalopram oxalate [Lexapro] 40 mg PO DAILY 02/15/19 09/06/20 lorazepam 0.5 mg PO BID PRN 02/15/19 09/06/20 pravastatin 10 mg PO DAILY 02/15/19 09/06/20 duloxetine 20 mg PO DAILY 10/24/19 09/06/20 pantoprazole [Protonix] 40 mg PO BID 05/15/20 09/06/20 hydrocodone-acetaminophen 2 tablet PO Q8H PRN 09/04/20 09/06/20 Allergies Allergy/AdvReac Type Severity Reaction Status Date / Time tamsulosin Allergy Intermediate HIVES Verified 09/04/20 09:04 Review of Systems Constitutional: Constitutional: Denies chills, Denies fever(s) and Denies weakness Eyes: Eyes: Denies change in vision and Denies photophobia ENT: Denies dysphagia, Denies nasal congestion and Denies sore throat Cardiovascular: Cardiovascular: Denies chest pain and Denies radiating jaw, neck or arm pain Respiratory: Respiratory: Denies cough and Denies dyspnea Gastrointestinal: Gastrointestinal: Reports abdominal pain, Denies diarrhea, Denies nausea and Denies vomiting Genitourinary: Genitourinary: Denies hematuria and Denies dysuria Neurologic: Denies vertigo, Denies dizziness and Denies syncope Endocrine: Endocrine: Denies polydipsia and Denies polyuria Hematologic/Lymphatic: Hematologic/Lymphatic: Denies easy bleeding and Denies easy bruising PMFSH Past Medical History Medical History Anemia Anxiety Arthritis Chronic GERD Depression Diabetes High cholesterol HTN (hypertension) Hyperlipidemia Impingement syndrome, shoulder, left Insulin dependent diabetes mellitus Local recurrence of malignant neoplasm of esophagus SUDHIR (obstructive sleep apnea) Port-A-Cath in place Seasonal allergies Tendinitis of left rotator cuff Vision abnormalities Surgical History Surgical History History of arthroscopy of left knee History of esophagectomy Family History Family History Grandparent Diabetes mellitus Family history of cardiovascular disease Sibling Hypertension Mother Family history of elevated blood lipids Other Arthritis Malignant neoplasm Social History Social History Smoking status: Never smoker Gender identity (if verbalized by the patient): Male Exam Const: General: alert Orientation/consciousness: patient oriented x3 Limitations: no limitations Other: Severe acute distress. Restless. HENMT: Face and sinus: normal fac
[2020-09-07] MEDS: MORPHINE SULFATE (*CRX) 2 MG/ML INJ 10 MG IV PUSH (16:15)
[2020-09-07] MEDS: SODIUM CHLORIDE 0.9% IV 1,000 ML 999 ML IV CONT (16:17)
[2020-09-07] MEDS: LORazepam INJ (*CRX) 2 MG/ML VIAL 1 MG IV PUSH (16:45)
[2020-09-07 17:16] LABS: Hematocrit 25.1 % (40.0-54.0); Hemoglobin 8.2 g/dL (14.0-18.0); Mean Corpuscular HGB Conc 32.7 g/dL (32.0-36.0); Mean Corpuscular Hemoglobin 28.3 pg (27.0-31.0); Mean Corpuscular Volume 86.6 fL (78.0-102.0); Mean Platelet Volume 8.5 fl (8.7-11.0); Platelet Count Result 431 K/mm3 (150-420); Red Cell Distribution Width 18.7 % (11.6-14.4); White Blood Count 3.7 K/mm3 (4.8-10.8)
[2020-09-07 17:36] LABS: Band Neutrophils Percent 4 % (0-6); Basophils Absolute Manual 0.03 K/mm3 (0-0.1); Basophils Percent Manual 1 % (0-1); Eosinophils Percent Manual 0 % (1-6); Lymphocytes Absolute Manual 0.33 K/mm3 (1.1-4.5); Lymphocytes Percent Manual 9 % (18-44); Metamyelocytes Percent 1 %; Monocytes Absolute Manual 0.22 K/mm3 (0.1-0.90); Monocytes Percent Manual 6 % (3-9); Neutrophils Absolute Manual 3.07 K/mm3 (1.3-6.7); Neutrophils Percent Manual 79 % (46-73); Nucleated Red Blood Cells 1 %; Total Cells Counted 100
[2020-09-07 17:38] LABS: Alanine Aminotransferase 14 U/L (16-63); Albumin Level 2.9 g/dL (3.4-5.0); Alkaline Phosphatase 83 U/L (46-116); Anion Gap 10 mmol/L (8-16); Aspartate Amino Transferase 13 U/L (15-37); Bilirubin,Total 0.3 mg/dL (0.00-1.00); Blood Urea Nitrogen 12 mg/dL (7-18); Carbon Dioxide 24 mmol/L (21-32); Chloride 104 mmol/L (98-108); Estimated CRCL calculation 94 ml/min; Estimated Glomerular Filt Rate > 60; Glucose 110 mg/dL (70-99); Osmolality Calculated 286 mOsm/kg (285-295); Potassium 3.1 mmol/L (3.5-5.1); Sodium 138 mmol/L (136-145); Total Protein 6.2 g/dL (6.4-8.2)
[2020-09-07 17:42] LABS: Lactic Acid Reflex 1.2 mmol/L (0.4-2.0)
[2020-09-07] MEDS: HYDROmorphone HCL INJ (*CRX) 2 MG/ML VIAL 1 MG IV PUSH (18:10)
[2020-09-07 18:25] VITALS: BP 128/83; PULSE 112; RESP 20; TEMP 36.7; O2SAT 97
== END 2020-09-07 18:25 | disposition home or self-care (01) ==
PROVIDERS: Emergency Provider Emergency Medicine; PCP Internal Medicine
DX: R52 Pain, unspecified (principal); C25.9 Malignant neoplasm of pancreas, unspecified; D73.5 Infarction of spleen
CPT/HCPCS: 36415; 80053; 83605; 85025; 96361; 96374; 96375; 99283; 99284; J1170; J2060; J2270; J7030

== ENCOUNTER 2020-09-23 13:44 | Emergency (ER) | payer BC, OTHER, SELFPAY ==
[2020-09-23 14:00] VITALS: BP 147/104; PULSE 85; RESP 20; TEMP 36.4; O2SAT 97
[2020-09-23] MEDS: MORPHINE SULFATE (*CRX) 4 MG/ML INJ IV PUSH ×2 (14:10→14:52)
[2020-09-23] MEDS: ORPHENADRINE CITRATE 30 MG/ML 2 ML VIAL 60 MG IM (14:15)
[2020-09-23] MEDS: MORPHINE SULFATE (*CRX) 2 MG/ML INJ IV PUSH (15:14)
--- NOTE | 2020-09-23 15:15 | ED.BACK ---
HPI - Back Pain/Injury General Chief Complaint: Back Pain/Injury Stated Complaint: pain in Spleen and lower back Source: patient and family Mode of arrival: wheelchair History of Present Illness HPI Narrative: Patient with a history of esophageal cancer that has chronic back pain and spasms presents today for pain control, see oncology group at the [facility] and is scheduled for set up appointment with pain management. But has been having increasing back pain with spasms and worsened over the last few hours, does take pain medication at home that offered no relief. Currently there is no fever chills no dysuria no nausea vomiting no abdominal pain no chest pain or shortness of breath. MD elicited complaint: back pain Pertinent past history: prior back pain Onset (ago): day(s) Severity: severe Pain scale (0-10): 10 Quality: aching and spasming Location: lumbar spine Radiation: none Exacerbating factors: none Related Data Home Medications Medication Instructions Recorded Confirmed Lantus U-100 Insulin 10 unit SUBCUT DAILY 02/15/19 09/23/20 escitalopram oxalate [Lexapro] 40 mg PO DAILY 02/15/19 09/23/20 lorazepam 0.5 mg PO BID PRN 02/15/19 09/23/20 pravastatin 10 mg PO DAILY 02/15/19 09/23/20 duloxetine 20 mg PO DAILY 10/24/19 09/23/20 pantoprazole [Protonix] 40 mg PO BID 05/15/20 09/23/20 hydrocodone-acetaminophen 2 tablet PO Q8H PRN 09/04/20 09/23/20 Allergies Allergy/AdvReac Type Severity Reaction Status Date / Time tamsulosin Allergy Intermediate HIVES Verified 09/04/20 09:04 Review of Systems Review of Systems: All systems reviewed & are unremarkable except as noted in HPI and below PMFSH Past Medical History Medical History Anemia Anxiety Arthritis Chronic GERD Depression Diabetes High cholesterol HTN (hypertension) Hyperlipidemia Impingement syndrome, shoulder, left Insulin dependent diabetes mellitus Local recurrence of malignant neoplasm of esophagus SUDHIR (obstructive sleep apnea) Port-A-Cath in place Seasonal allergies Tendinitis of left rotator cuff Vision abnormalities Surgical History Surgical History History of arthroscopy of left knee History of esophagectomy Family History Family History Grandparent Diabetes mellitus Family history of cardiovascular disease Sibling Hypertension Mother Family history of elevated blood lipids Other Arthritis Malignant neoplasm Social History Social History Smoking status: Never smoker Gender identity (if verbalized by the patient): Male Exam Const: General: no acute distress and alert Orientation/consciousness: patient oriented x3 HENMT: Head: normal to inspection Eyes: Conjunctivae: conjunctivae normal Pupils: Equal, round and reactive pupils present Neck: Neck: normal visual inspection, no lymphadenopathy and no meningeal signs Chest: Chest palpation & inspection: normal inspection of the chest Resp: Effort & Inspection: normal respiratory effort Auscultation: clear to auscultation bilaterally Cardio: Rate: regular rate Rhythm: regular rhythm GI: Auscultation: normal bowel sounds : General: Yes no CVA tenderness Male General Exam: Yes normal external exam Urinary Catheter: Urinary Catheter: patent and draining Back/Spine/Pelvis: Back: no CVA tenderness Skin: General skin exam: normal color Rashes: no rashes Neuro: General: patient oriented x3 Extrem: Other: His lower back pain with bilateral back spasms Psych: Appearance: grossly normal Affect: normal affect and Anxious affect present Attitude: cooperative Course Course Emergency Course: patient had initially some relief of his back pain with muscle relaxant and with some morphine, but pain level slowly creeped back up and patient rece
[2020-09-23 15:21] VITALS: BP 122/79; PULSE 75; RESP 20; O2SAT 97
== END 2020-09-23 15:27 | disposition home or self-care (01) ==
PROVIDERS: Emergency Provider Emergency Medicine; PCP Internal Medicine
DX: M54.42 Lumbago with sciatica, left side (principal)
CPT/HCPCS: 96374; 96375; 96376; 99283; 99284; J2270; J2360

== ENCOUNTER 2020-10-01 07:46 | Outpatient (CLI) | payer BC, SELFPAY ==
--- NOTE | 2020-10-01 07:53 | ECHO_ITS ---
Patient Info Name: Lazarus Bernard Age: 55 years : 1965 Gender: Male Ht: 68 in Wt: 135 lbs BSA: 1.71 m2 HR: 78 bpm BP: 124 / 68 mmHg Heart Rhythm: Sinus Rhythm Technical Quality: Excellent Exam Date: 10/01/2020 7:47 AM Exam Location: [facility] Patient Status: Outpatient Admit Date: 10/01/2020 Staff Ordering Physician: Matteo Ham MD Home Health Registered Nurse: Neena Rendon RDCS Attending Provider: Matteo Ham MD Referring Physician: Jitendra MAE; Exam Type: CA echo doppler color flow Study Info Indications R93.8 - Abnormal findings on diagnostic imaging of other specified body structures Complete two-dimensional, color flow and Doppler transthoracic echocardiogram is performed. Strain analysis performed. History/Risk Factors Hypertension: No Dyslipidemia: Yes Congenital Heart Disease (CHD): No Diabetic Therapy: Insulin Peripheral Arterial Disease (PAD): No Myocardial Infarction (SC): No Chronic Lung Disease: No Obesity: No Renal Disease: No Coronary Artery Disease (CAD) No Congestive Heart Failure (CHF): No Cardiomyopathy/LV Systolic Dysfunction: No Diabetes Mellitus: Type II COPD: No Tobacco Use: Former Cerebrovascular Disease: No Family History: Diabetes Mellitus Deep Vein Thrombosis (DVT): None Dialysis: None Frailty Scale (CSHA): 2: Well Cardiac Arrest: No Summary 1. Complete two-dimensional, color flow and Doppler transthoracic echocardiogram is performed. 2. Left ventricular chamber dimension is normal. 3. Left ventricular systolic function is normal, estimated at 65-70%. 4. The left ventricular diastolic function is normal. 5. E/e' 10 is minimally elevated. 6. Global longitudinal strain is normal at -19.7%. 7. There is trace mitral valve regurgitation. Recommendations * Continue medical therapy for diabetes. Left Ventricle E/e' 10 is minimally elevated. Global longitudinal strain is normal at -19.7%. Left ventricular chamber dimension is normal. Left ventricular systolic function is normal, estimated at 65-70%. The left ventricular diastolic function is normal. Right Ventricle Right ventricular systolic function is normal and with normal TAPSE 2.1 cm.. Right ventricular chamber dimension is normal. Left Atria Left atrial chamber dimension is normal. Right Atria Right atrial chamber dimension is normal. Aortic Valve The aortic valve is trileaflet. There is no aortic valve stenosis. There is no aortic valve regurgitation. Pulmonic Valve There is no pulmonic regurgitation. Mitral Valve There is no mitral valve stenosis. There is trace mitral valve regurgitation. Tricuspid Valve There is no tricuspid valve regurgitation. Pericardium/Pleural There is no pericardial effusion. Inferior Vena Cava Normal inferior vena cava with >50% collapse upon inspiration consistent with normal right atrial pressure, 5 mmHg. Aorta The aortic root size at the sinus of Valsalva is normal. Left Ventricular Outflow Tract Name Value Normal LVOT 2D LVOT Diameter 1.9 cm LVOT Doppler
== END 2020-10-01 07:47 | disposition home or self-care (01) ==
LOC: CHSIMG 07:49
PROVIDERS: PCP Internal Medicine; Visit Provider Internal Medicine Hematology & Oncology
DX: C15.5 Malignant neoplasm of lower third of esophagus (principal)
CPT/HCPCS: 93306

== ENCOUNTER 2020-10-08 00:48 | Emergency (ER) | payer BC, SELFPAY ==
--- NOTE | ~2020-10-08 | CT_ITS ---
EXAMINATION: CT abdomen pelvis w con INDICATION: Abdominal pain, nausea and vomiting TECHNIQUE: Computed tomographic images of the abdomen and pelvis were obtained after the administrati on of 100 cc of Omnipaque 350 intravenous contrast. The dose-length product (DLP) was 524.34 mGy-cm. Automated exposure control and iterative reconstruction technique were employed. COMPARISON: 09/06/2020 FINDINGS: There are moderate-sized left and small right pleural effusions. The heart size is normal. Atelectasis is noted in the visualized lung bases. Calcified atherosclerosis is noted. Changes of gas tric pull-through are noted. There is continued interval enlargement of a necrotic mass at the esopha geal hiatus. There is increased invasion of the pancreas and stomach. Again noted is encasement of th e celiac axis with interval worsening of proximal celiac stenosis. There is a large volume of ascites . There is a 7 mm hypoattenuating lesion of the right hepatic lobe. 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 The gallbladder, right ad renal gland, and kidneys are unremarkable. No pathologically enlarged abdominal or pelvic lymph nodes are identified. There are no dilated loops of bowel. The appendix is normal. IMPRESSION: 1. Enlarging necrotic mass at the esophageal hiatus invading the stomach, pancreas, and left adrenal gland, consistent with metastatic esophageal cancer. 2. 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 3. Small right and moderate-sized left pleural effusions. These findings were communicated to Dr. Melvin Flores MD in the Emergency Department at 0336 hours on 10/08/2020 by the [employer]iologist. Patient has at the time of final interpretation. Reviewed, dictated and finalized at location A. IMPRESSION: 1. Enlarging necrotic mass at the esophageal hiatus invading the stomach, pancr eas, and left adrenal gland, consistent with metastatic esophageal cancer. 2. 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 3. Small right and moderate-sized left pleural effusions. These findings were communicated to Dr. Melvin Flores MD in the Emergency Dep artment at 0336 hours on 10/08/2020 by the [employer]iologist. Patient has expi red at the time of final interpretation.
--- NOTE | ~2020-10-08 | CT_ITS ---
EXAMINATION: CT brain wo con INDICATION: Seizure, stage IV esophageal cancer COMPARISON: None TECHNIQUE: Standard unenhanced head CT. The dose-length product (DLP) was 756.67 mGy-cm. The mA was a djusted according to patient size. Iterative reconstruction technique was employed. FINDINGS: Motion artifact significantly limits the examination. There is a 2.8 cm hyperdense lesion o f the left cerebellum. No acute infarct or extra-axial hemorrhage is identified. The ventricles are n ormal. There is no abnormal mass effect or midline shift. The basal cisterns are patent. The orbits a re normal. There is mild mucosal thickening of the paranasal sinuses. IMPRESSION: 1. 2.8 cm hyperdense area of the left cerebellum which could reflect hemorrhage or mass. These findin gs were communicated to Dr. Melvin Flores MD in the Emergency Department at 0401 hours on 10/08/2020 by the [employer]iologist. Patient has at the time of final interpretation. Reviewed, dictated and finalized at location A. IMPRESSION: 1. 2.8 cm hyperdense area of the left cerebellum which could reflect hemorrhage or mass. These findings were communicated to Dr. Melvin Flores MD in the [facility] at 0401 hours on 10/08/2020 by the [employer]iologist. Patien t has at the time of final interpretation.
[2020-10-08 00:48] VITALS: BP 118/90; PULSE 116; RESP 20; TEMP 36.6; O2SAT 97
--- NOTE | 2020-10-08 00:50 | ED.NAVMDI ---
HPI - Nausea/Vomiting/Diarrhea General Chief complaint: Nausea/Vomiting/Diarrhea Stated complaint: Nausea and Vomiting Time Seen by Provider: 10/08/20 00:50 Source: patient, family, EMS and old records reviewed Mode of arrival: EMS Limitations: no limitations History of Present Illness HPI Narrative: 55-year-old male with history of stage IV esophageal cancer has been having nausea all day. Spouse states that he has been having some abdominal pain since chemotherapy 4 days ago. He vomited once and has had some intermittent constipation as well. Denies any fever chills. MD elicited complaint: nausea, vomiting and abdominal pain Onset (ago): hour(s) (12) Description of vomiting: bilious Associated nausea: Yes Associated abdominal pain: Yes Location of pain: diffuse Pain consistency: intermittent Severity: moderate Quality: cramping Exacerbating factors: eating Relieving factors: none Associated symptoms: loss of appetite, malaise and weakness Related Data Home Medications Medication Instructions Recorded Confirmed Lantus U-100 Insulin 10 unit SUBCUT DAILY 02/15/19 10/08/20 escitalopram oxalate [Lexapro] 40 mg PO DAILY 02/15/19 10/08/20 lorazepam 0.5 mg PO BID PRN 02/15/19 10/08/20 pravastatin 10 mg PO DAILY 02/15/19 10/08/20 duloxetine 20 mg PO DAILY 10/24/19 10/08/20 pantoprazole [Protonix] 40 mg PO BID 05/15/20 10/08/20 gabapentin 300 mg PO TID 09/27/20 10/08/20 methocarbamol 1,500 mg PO TID PRN 09/27/20 10/08/20 Allergies Allergy/AdvReac Type Severity Reaction Status Date / Time tamsulosin Allergy Intermediate HIVES Verified 10/01/20 10:15 Review of Systems Review of Systems: All systems reviewed & are unremarkable except as noted in HPI and below Constitutional: Constitutional: Denies chills and Denies fever(s) Cardiovascular: Cardiovascular: Denies chest pain and Denies rapid heart rate Neurologic: Denies confusion and Denies focal weakness [facility] Past Medical History Medical History (Updated 10/08/20 @ 04:43 by Melvin Flores MD) Anemia Anxiety Arthritis Chronic GERD Depression Diabetes High cholesterol HTN (hypertension) Hyperlipidemia Impingement syndrome, shoulder, left Local recurrence of malignant neoplasm of esophagus Malignant neoplasm of lower third of esophagus SUDHIR (obstructive sleep apnea) Port-A-Cath in place Seasonal allergies Tendinitis of left rotator cuff Type 2 diabetes mellitus Vision abnormalities Surgical History Surgical History History of arthroscopy of left knee History of esophagectomy Family History Family History Grandparent Diabetes mellitus Family history of cardiovascular disease Sibling Hypertension Mother Family history of elevated blood lipids Other Arthritis Malignant neoplasm Social History Social History (System 10/01/20 @ 10:15 by Rajani Membreno) Smoking status: Never smoker Gender identity (if verbalized by the patient): Male Exam Const: General: no acute distress and ill appearing chronically Nutritional Appearance: thin Orientation/consciousness: patient oriented x3 HENMT: Head: normal to inspection Ears: external ears normal Face and sinus: normal facial exam Eyes: Pupils: Equal, round and reactive pupils present EOM: EOMs intact bilaterally Neck: Neck: normal visual inspection Resp: Effort & Inspection: normal respiratory effort Auscultation: clear to auscultation bilaterally Cardio: Rate: regular rate Rhythm: regular rhythm GI: GI Palp: Yes abdominal tenderness (Moderate, diffuse), Yes Soft to palpation, Yes Guarding due to palpation present (GI), No Rigid due to palpation and No Rebound tenderness present Back/Spine/Pelvis: Cervical Spine: cervical ROM normal Thoracic/Lumbar Spine: thoraco-lumbar ROM normal Skin: General skin exam: normal color Rashes: no rashes Neuro: General: patient
[2020-10-08 01:00] LABS: Glucose Point of Care 364 mg/dl (65-105)
[2020-10-08] MEDS: LACTATED RINGERS 1,000 ML 999 ML IV CONT (01:05)
[2020-10-08] MEDS: INSULIN HUMAN REGULAR (*BKC) 100 UNITS/ML 15 UNITS SUB-Q (01:12)
[2020-10-08] MEDS: INSULIN HUMAN REGULAR (*BKC) 100 UNITS/ML IV PUSH (01:12)
[2020-10-08] MEDS: ONDANSETRON INJ 4 MG/2 ML VIAL IV PUSH (01:17)
[2020-10-08 01:29] LABS: Basophils Absolute Auto 0.03 K/mm3 (0.00-0.10); Basophils Percent Auto 0.2 % (0.0-1.0); Eosinophils Absolute Auto 0.01 K/mm3 (0.02-0.50); Eosinophils Percent Auto 0.1 % (1.0-6.0); Hemoglobin 13.5 g/dL (14.0-18.0); Immature Granulocyte Percent A 2.8 % (0.0-0.0); Lymphocytes Absolute Auto 0.55 K/mm3 (1.10-4.50); Lymphocytes Percent Auto 3.9 % (18.0-42.0); Mean Corpuscular HGB Conc 32.1 g/dL (32.0-36.0); Mean Corpuscular Hemoglobin 26.8 pg (27.0-31.0); Mean Corpuscular Volume 83.5 fL (78.0-102.0); Mean Platelet Volume 9.5 fl (8.7-11.0); Monocytes Absolute Auto 0.78 K/mm3 (0.10-0.90); Monocytes Percent Auto 5.6 % (2.0-11.0); Neutrophils Absolute Auto 12.3 K/mm3 (1.7-7.2); Neutrophils Percent Auto 87.4 % (50.0-70.0); Nucleated Red Blood Cells Absolute Auto 0.08 K/mm3 (0.00-0.00); Nucleated Red Blood Cells Perc 0.6 % (0-0.0); Platelet Count Result 223 K/mm3 (150-420); Red Blood Count 5.03 M/mm3 (4.70-6.10); Red Cell Distribution Width 18.4 % (11.6-14.4)
[2020-10-08 01:52] LABS: Alanine Aminotransferase 13 U/L (16-63); Albumin Level 1.8 g/dL (3.4-5.0); Alkaline Phosphatase 68 U/L (46-116); Anion Gap 14 mmol/L (8-16); Aspartate Amino Transferase 18 U/L (15-37); Bilirubin,Total 0.3 mg/dL (0.00-1.00); Blood Urea Nitrogen 40 mg/dL (7-18); Calcium 8.3 mg/dL (8.5-10.1); Carbon Dioxide 20 mmol/L (21-32); Chloride 90 mmol/L (98-108); Estimated CRCL calculation 39 ml/min; Estimated Glomerular Filt Rate 43; Glucose 388 mg/dL (70-99); Osmolality Calculated 283 mOsm/kg (285-295); Potassium 5.3 mmol/L (3.5-5.1); Sodium 124 mmol/L (136-145); Total Protein 5.3 g/dL (6.4-8.2)
--- NOTE | 2020-10-08 01:52 | PC.NURSE ---
pt resting with next to him in another cot. awaiting lab results.
[2020-10-08 01:57] LABS: Glucose Point of Care 309 mg/dl (65-105)
[2020-10-08 02:27] LABS: Glucose Point of Care 274 mg/dl (65-105)
--- NOTE | 2020-10-08 03:12 | PC.NURSE ---
Addendum entered by Jesse Carr RN 10/08/20 06:28: episode lasted approx 6 minutes totally. please omit 2 minutes. Original Note: 0300 pt gasping for air, upon arrival to room pt skin pale/clammy, pupils fixed and unresponsive to name, for approx 2 min. pt then responded when name called. erp dr kirby in room. clarified with again pt FULL CODE.
[2020-10-08 03:16] VITALS: BP 90/80; PULSE 127; RESP 28; O2SAT 98
--- NOTE | 2020-10-08 03:50 | PM.CCN ---
Critical Care Event Note Summary Code activated: Yes Narrative: This case had a high probability of a clinically significant, sudden, or life threatening deterioration of this patient's condition which required my full and direct attention, intervention and personal management. Critical care time: 30 - 74 mins
--- NOTE | 2020-10-08 04:45 | ED.CPR ---
HPI - CPR General Chief Complaint: Nausea/Vomiting/Diarrhea Stated Complaint: Nausea and Vomiting Time Seen by Provider: 10/08/20 00:50 Source: patient, family, EMS and old records reviewed Mode of arrival: EMS Limitations: no limitations History of Present Illness HPI narrative: Continuation from previous note of cardiac arrest. Which began at 3:45 a.m. complaint: stopped breathing Related Data Home Medications Medication Instructions Recorded Confirmed Lantus U-100 Insulin 10 unit SUBCUT DAILY 02/15/19 10/08/20 escitalopram oxalate [Lexapro] 40 mg PO DAILY 02/15/19 10/08/20 lorazepam 0.5 mg PO BID PRN 02/15/19 10/08/20 pravastatin 10 mg PO DAILY 02/15/19 10/08/20 duloxetine 20 mg PO DAILY 10/24/19 10/08/20 pantoprazole [Protonix] 40 mg PO BID 05/15/20 10/08/20 gabapentin 300 mg PO TID 09/27/20 10/08/20 methocarbamol 1,500 mg PO TID PRN 09/27/20 10/08/20 Allergies Allergy/AdvReac Type Severity Reaction Status Date / Time tamsulosin Allergy Intermediate HIVES Verified 10/01/20 10:15 [facility] Past Medical History Medical History (Updated 10/08/20 @ 04:43 by Melvin Flores MD) Anemia Anxiety Arthritis Chronic GERD Depression Diabetes High cholesterol HTN (hypertension) Hyperlipidemia Impingement syndrome, shoulder, left Local recurrence of malignant neoplasm of esophagus Malignant neoplasm of lower third of esophagus SUDHIR (obstructive sleep apnea) Port-A-Cath in place Seasonal allergies Tendinitis of left rotator cuff Type 2 diabetes mellitus Vision abnormalities Surgical History Surgical History History of arthroscopy of left knee History of esophagectomy Family History Family History Grandparent Diabetes mellitus Family history of cardiovascular disease Sibling Hypertension Mother Family history of elevated blood lipids Other Arthritis Malignant neoplasm Social History Social History (System 10/01/20 @ 10:15 by Rajani Membreno) Smoking status: Never smoker Gender identity (if verbalized by the patient): Male Course Course Emergency Course: Patient had just returned from CT scan of his brain. patient asked to have a commode so he could have a bowel movement. I was then called to the room when patient became unresponsive leaned forward vomited. he appeared to have seizure-like activity and became unresponsive. He was lifted onto the gurney and evaluated he continued to have spontaneous respirations with a faint pulse. Patient became pulseless at 3:50 a.m. and CPR is initiated. Pads are placed and bagging with BVM was initiated. CPR continued epinephrine doses were given. Vomitus was suctioned from the posterior pharynx. Patient was then intubated using glide scope and bougie, a 6.5 ET tube was then passed over the bougie and balloon is inflated. Bagging is continued , CPR is continued. During the code I was handed his results from has CT abdomen pelvis which showed and outpouching versus contained perforation or abscess at the level of diaphragm in the esophagus. We continued with CPR and epinephrine and bagging. Repeated rhythm checks revealed asystole, there were no spontaneous respirations. At this point results of his CT brain returned which showed a 2.5 cm left cerebral hemorrhage. I discussed the findings with spouse and family. Final rhythm checked again revealed asystole. Patient had no response to epinephrine CPR or intubation. Family requested that further life-saving interventions be terminated. Time of 4:17 a.m.. Vital Signs Vital signs: Vital Signs Temperature 36.6 C 10/08/20 00:48 Pulse Rate 116 H 10/08/20 00:48 Respiratory Rate 20 10/08/20 00:48 Blood Pressure 118/90 10/08/20 00:48 Pulse Oximetry 97 10/08/20 00:48 Temperature 36.6 C 10/08/20 00:48 Pulse Rate 127 H 10/08/20 03:16 Respiratory Rate 28 H
--- NOTE | 2020-10-08 06:31 | PC.NURSE ---
0330 pt moved from room #2 to room #7, larger room for multiple family members and code equipment if needed. [address] head related to seizure activity per stretcher with teri george staff and kenan martinez 0345 pt returned to room per stretcher with juan, discussed placing geiger for urine specimen. pt alert and declined geiger wanting to get up on commode to have bm and urinate. 0346 commode to room, pt assisted to commode with 2 staff. pt able to bear weight and adjust self on commode. RN left room to get medication as ordered per dr kirby from [facility]. 0347 juan manager terminal, yelling for assistance. RN back to room, pt clammy, diaphoretic, snoring respirations. CODE C called, dr kirby called to room, pt assisted back to bed with 4 staff. pt unresponsive to verbal and sternal rub. SEE CODE FLOWSHEET.
[2020-10-08 06:56] VITALS: O2SAT 96
[2020-10-08] MEDS: EPINEPHrine INJ 1 MG/10 ML SYRINGE 5 MG (07:09)
[2020-10-09 00:08] LABS: Glucose Point of Care 229 mg/dl (65-105)
== END 2020-10-08 05:45 | disposition expired ==
PROVIDERS: Emergency Provider Emergency Medicine; PCP Internal Medicine
DX: I46.9 Cardiac arrest, cause unspecified (principal); I62.9 Nontraumatic intracranial hemorrhage, unspecified; K22.9 Disease of esophagus, unspecified; K21.9 Gastro-esophageal reflux disease without esophagitis; E11.9 Type 2 diabetes mellitus without complications; E78.00 Pure hypercholesterolemia, unspecified; I10 Essential (primary) hypertension; Z79.4 Long term (current) use of insulin
CPT/HCPCS: 31500; 36415; 70450; 74177; 80053; 82948; 85025; 92950; 96374; 96375; 99285; 99291; J0171; J1815; J2405; J7120; Q9967